=== PATIENT | female | born 1940 | race Caucasian/White ===

== ENCOUNTER → 2016-11-13 | Outpatient (CLI) | payer MEDICARE, BC ==
[2016-11-13 13:10] LABS: Basophils # (A) 0.1 k/uL (0-0.2); Basophils % (A) 0 %; CH 29.7; Eosinophils # (A) 0.4 k/uL (0-0.7); Eosinophils % (A) 3 %; HCT 43.3 % (34.0-46.0); HDW 2.71; HGB 13.9 gm/dL (11.4-16.0); Luc # (Auto) 0.27; Luc % (Auto) 2; Lymphocytes # (A) 4.8 k/uL (1.0-4.8); Lymphocytes % (A) 36 %; MCV 90.6 fL (80.0-100.0); Mean Platelet Volume 7.5; Monocytes # (A) 0.7 k/uL (0-1.0); Monocytes % (A) 5 %; Neutrophils # (A) 7.3 k/uL (1.3-7.7); Neutrophils % (A) 54 %; RBC 4.78 m/uL (3.80-5.40); RDW 15.1 % (11.5-15.5); WBC 13.5 k/uL (3.8-10.6)
[2016-11-13 13:45] LABS: Manual Review Performed
[2016-11-13 16:38] LABS: Erythrocyte Sedimentation Rate 19 mm/hr (0-20)
[2016-11-13 20:50] LABS: Alternaria alternata IgE <0.10 kU/L; Aspergillus fumagatus IgE <0.10 kU/L; Cat Epith & Dander IgE <0.10 kU/L; Cladosporian herbarum IgE <0.10 kU/L; Dermato. farinae IgE <0.10 kU/L; Maple (Box Elder) IgE <0.10 kU/L; Orchard Grs(Cocksfoot) IgE <0.10 kU/L; Ragweed,Common IgE <0.10 kU/L
== END | disposition home or self-care (01) ==
LOC: LABWHC1 12:49
PROVIDERS: ATTEND Internal Medicine
DX: T78.40XA Allergy, unspecified, initial encounter (principal); R05 Cough
CPT/HCPCS: 36415; 82785; 85025; 85652; 86003

== ENCOUNTER → 2017-03-21 | Outpatient (CLI) | payer MEDICARE, BC | END | disposition home or self-care (01) | LOC: RADBDWWP 13:17 | PROVIDERS: ATTEND Internal Medicine | DX: Z53.9 Procedure and treatment not carried out, unspecified reason (principal) ==

== ENCOUNTER 2017-06-28 20:28 | Inpatient (IN) | payer MEDICARE, BC ==
--- NOTE | 2017-06-28 21:49 | ED ---
SOB HPI - General Chief Complaint: Shortness of Breath Stated Complaint: SOB Time Seen by Provider: 06/28/17 21:29 Source: patient Mode of arrival: wheelchair Limitations: no limitations - History of Present Illness Initial Comments: This patient is a 77-year-old woman who presents with complaint of progressively worsening cough, wheeze, and shortness of breath. The patient states that she has history of asthma and usually is maintained on daily steroids in addition to inhaled medications. Patient states that she is scheduled to have a procedure performed for gastroesophageal reflux, and that she was taken off of her daily steroids weeks ago. She states that she feels like her underlying lung disease is getting progressively worse. Today she has taken a number of nebulized treatments and she even took 1 dose of prednisone about 5 PM, but she still feels like her breathing is not back to normal. Patient denies any other symptoms. No fever or chills. Cough is nonproductive. No chest pain. No change in bowel movements or urination area no leg pain or swelling MD Complaint: shortness of breath, cough -: days(s) Consistency: constant Improves With: nothing Worsens With: nothing Known History Of: asthma, other (Reflux) Context: medication noncompliance Associated Symptoms: denies other symptoms, cough Treatments Prior to Arrival: bronchodilator, other (Prednisone) - Related Data Home Oxygen Therapy: No Home Medications Medication Instructions Recorded Confirmed Aspirin 325 mg PO DIRECTED 01/18/16 06/28/17 Biotin 5 mg PO DIRECTED 01/18/16 06/28/17 Bisoprolol Fumarate [Zebeta] 5 mg PO HS 01/18/16 06/28/17 Cholecalciferol [Vitamin D3] 2,000 unit PO DIRECTED 01/18/16 06/28/17 Gabapentin [Neurontin] 300 mg PO HS 01/18/16 06/28/17 LORazepam [Ativan] 0.5 mg PO DAILY PRN 01/18/16 06/28/17 Levothyroxine Sodium [Synthroid] 50 mcg PO DAILY 01/18/16 06/28/17 Montelukast [Singulair] 10 mg PO HS 01/18/16 06/28/17 Multivit-Min/Iron/Folic/Lutein 1 tab PO DIRECTED 01/18/16 06/28/17 [Centrum Silver Women Tablet] Omeprazole 40 mg PO BID 01/18/16 06/28/17 Rosuvastatin Calcium [Crestor] 20 mg PO HS 01/18/16 06/28/17 Albuterol Sulfate [Proair Hfa] 2 puff INHALATION RT-BID 06/28/17 06/28/17 Ascorbic Acid [Vitamin C] 1,000 mg PO DIRECTED 06/28/17 06/28/17 Calcium 1000mg 1,000 mg PO DIRECTED 06/28/17 06/28/17 Chelated Magnesium 500mg 500 mg PO DIRECTED 06/28/17 06/28/17 Fish Oil/Dha/Epa [Fish Oil 1,200 1 cap PO DIRECTED 06/28/17 06/28/17 mg Fish Oil] Folic Acid 0.4 mg PO DIRECTED 06/28/17 06/28/17 Glycopyrrolate/Formoterol Fum 2 puff INHALATION RT-BID 06/28/17 06/28/17 [Bevespi Aerosphere Inhaler] Ranitidine HCl [Zantac] 150 mg PO DAILY 06/28/17 06/28/17 Allergies Allergy/AdvReac Type Severity Reaction Status Date / Time Sulfa (Sulfonamide Allergy Rash/Hives Verified 06/28/17 22:05 Antibiotics) Review of Systems ROS Statement: Those systems with pertinent positive or pertinent negative responses have been documented in the HPI. ROS Other: All systems not noted in ROS Statement are negative. Constitutional: Denies: fever, chills ENT: Denies: congestion Respiratory: Reports: cough, dyspnea, wheezes. Denies: hemoptysis Cardiovascular: Denies: chest pain, palpitations, syncope Gastrointestinal: Denies: abdominal pain, nausea, vomiting Genitourinary: Denies: dysuria, hematuria Musculoskeletal: Denies: back pain Skin: Denies: rash Neurological: Denies: headache, weakness, numbness Past Medical History Past Medical History: Asthma, Cancer, GERD/Reflux, Hyperlipidemia, Hypertension , Thyroid Disorder Additional Past Medical History / Comment(s): BASAL CELL CA BELOW RT EYE-TO BE REMOVED AT A LATER DATE, History of Any Multi-Drug Resistant Organisms: None Reported Past Surgical History: Tonsillectomy Additional Past Surgical History / Comment(s): CTR-BILAT WRISTS. EGD. COLONOSCOPY. BILAT CATARACTS REMOVED Past Anesthesia/Blood Transfusion Reactions: No Reported Reaction Past Psychological History: No Psychological Hx Reported Smoking Status: Former smoker Past Alcohol Use History: Rare Past Drug Use History: None Reported - Past Family History Mother Family Medical History: No Reported History General Exam Limitations: no limitations General appearance: alert, in no apparent distress Head exam: Present: atraumatic, normocephalic Eye exam: Present: normal appearance. Absent: scleral icterus, conjunctival injection ENT exam: Present: normal oropharynx Neck exam: Present: normal inspection Respiratory exam: Present: wheezes. Absent: respiratory distress, rales, rhonchi, stridor, accessory muscle use, decreased breath sounds, prolonged expiratory Cardiovascular Exam: Present: regular rate, normal rhythm, normal heart sounds. Absent: systolic murmur, diastolic murmur, rubs, gallop GI/Abdominal exam: Present: soft. Absent: distended, tenderness, guarding, rebound Extremities exam: Present: normal inspection, normal capillary refill. Absent: pedal edema, calf tenderness Back exam: Present: normal inspection Neurological exam: Present: alert Skin exam: Present: warm, dry, intact, normal color. Absent: rash Course Vital Signs 06/28/17 06/28/17 06/28/17 20:35 22:09 22:24 Temperature 99.0 F Pulse Rate 94 82 84 Respiratory 20 Rate Blood Pressure 139/80 O2 Sat by Pulse 95 Oximetry 06/28/17 23:16 Temperature 97.6 F Pulse Rate 85 Respiratory 18 Rate Blood Pressure 124/85 O2 Sat by Pulse 98 Oximetry Medical Decision Making - Lab Data Result diagrams: 06/28/17 21:30 06/28/17 21:30 Lab Results 06/28/17 06/28/17 06/28/17 Range/Units 21:30 21:30 21:30 WBC 8.5 (3.8-10.6) k/uL RBC 5.07 (3.80-5.40) m/uL Hgb 14.1 (11.4-16.0) gm/dL Hct 43.2 (34.0-46.0) % MCV 85.3 (80.0-100.0) fL MCH 27.8 (25.0-35.0) pg MCHC 32.6 (31.0-37.0) g/dL RDW 13.5 (11.5-15.5) % Plt Count 261 (150-450) k/uL Neutrophils % 80 % Lymphocytes % 13 % Monocytes % 2 % Eosinophils % 3 % Basophils % 1 % Neutrophils # 6.8 (1.3-7.7) k/uL Lymphocytes # 1.1 (1.0-4.8) k/uL Monocytes # 0.2 (0-1.0) k/uL Eosinophils # 0.3 (0-0.7) k/uL Basophils # 0.1 (0-0.2) k/uL D-Dimer 0.70 H (<0.60) mg/L FEU Sodium 142 (137-145) mmol/L Potassium 4.0 (3.5-5.1) mmol/L Chloride 106 (98-107) mmol/L Carbon Dioxide 23 (22-30) mmol/L Anion Gap 13 mmol/L BUN 17 (7-17) mg/dL Creatinine 0.60 (0.52-1.04) mg/dL Est GFR (CKD-EPI)AfAm >90 (>60 ml/min/1.73 sqM) Est GFR (CKD-EPI)NonAf 88 (>60 ml/min/1.73 sqM) Glucose 159 H (74-99) mg/dL Calcium 10.0 (8.4-10.2) mg/dL Magnesium 2.0 (1.6-2.3) mg/dL Total Bilirubin 0.4 (0.2-1.3) mg/dL AST 35 (14-36) U/L ALT 25 (9-52) U/L Alkaline Phosphatase 56 (38-126) U/L Troponin I (0.000-0.034) ng/mL NT-Pro-B Natriuret Pep pg/mL Total Protein 7.2 (6.3-8.2) g/dL Albumin 4.3 (3.5-5.0) g/dL Urine Color Urine Appearance (Clear) Urine pH (5.0-8.0) Ur Specific [place] (1.001-1.035) Urine Protein (Negative) Urine Glucose (UA) (Negative) Urine Ketones (Negative) Urine Blood (Negative) Urine Nitrite (Negative) Urine Bilirubin (Negative) Urine Urobilinogen (<2.0) mg/dL Ur Leukocyte Esterase (Negative) 06/28/17 06/28/17 06/28/17 Range/Units 21:30 21:30 23:00 WBC (3.8-10.6) k/uL RBC (3.80-5.40) m/uL Hgb (11.4-16.0) gm/dL Hct (34.0-46.0) % MCV (80.0-100.0) fL MCH (25.0-35.0) pg MCHC (31.0-37.0) g/dL RDW (11.5-15.5) % Plt Count (150-450) k/uL Neutrophils % % Lymphocytes % % Monocytes % % Eosinophils % % Basophils % % Neutrophils # (1.3-7.7) k/uL Lymphocytes # (1.0-4.8) k/uL Monocytes # (0-1.0) k/uL Eosinophils # (0-0.7) k/uL Basophils # (0-0.2) k/uL D-Dimer (<0.60) mg/L FEU Sodium (137-145) mmol/L Potassium (3.5-5.1) mmol/L Chloride (98-107) mmol/L Carbon Dioxide (22-30) mmol/L Anion Gap mmol/L BUN (7-17) mg/dL Creatinine (0.52-1.04) mg/dL Est GFR (CKD-EPI)AfAm (>60 ml/min/1.73 sqM) Est GFR (CKD-EPI)NonAf (>60 ml/min/1.73 sqM) Glucose (74-99) mg/dL Calcium (8.4-10.2) mg/dL Magnesium (1.6-2.3) mg/dL Total Bilirubin (0.2-1.3) mg/dL AST (14-36) U/L ALT (9-52) U/L Alkaline Phosphatase (38-126) U/L Troponin I 0.094 H* (0.000-0.034) ng/mL NT-Pro-B Natriuret Pep 792 pg/mL Total Protein (6.3-8.2) g/dL Albumin (3.5-5.0) g/dL Urine Color Light Yellow Urine Appearance Clear (Clear) Urine pH 6.5 (5.0-8.0) Ur Specific [place] 1.008 (1.001-1.035) Urine Protein Trace H (Negative) Urine Glucose (UA) Negative (Negative) Urine Ketones Negative (Negative) Urine Blood Negative (Negative) Urine Nitrite Negative (Negative) Urine Bilirubin Negative (Negative) Urine Urobilinogen <2.0 (<2.0) mg/dL Ur Leukocyte Esterase Negative (Negative) - EKG Data -: EKG Interpreted by Me EKG shows normal: sinus rhythm, axis (Normal), intervals ([place] interval is 198 ms , normal. QRS duration 92 ms, normal. QTC 510 ms and this is prolonged.), QRS complexes (Normal) Rate: normal (Approximately 88 bpm) Interpretation: nonspecific ST-T wave changes Disposition Clinical Impression: Asthma, Elevated troponin I level Disposition: ADMITTED IP TO THIS HOSP Condition: Fair Referrals: Glynn Galloway MD [Primary Care Provider] - 1-2 days
[2017-06-28] MEDS ORDERED: ALBUTEROL NEBULIZED 2.5 MG/3 ML INHALATION STA (21:57)
[2017-06-28] MEDS ORDERED: IPRATROPIUM-ALBUTEROL 3 ML NEB INHALATION STA (21:57)
[2017-06-28 22:09] LABS: Basophils # (A) 0.1 k/uL (0-0.2); Basophils % (A) 1 %; Eosinophils # (A) 0.3 k/uL (0-0.7); Eosinophils % (A) 3 %; HCT 43.2 % (34.0-46.0); HGB 14.1 gm/dL (11.4-16.0); Lymphocytes # (A) 1.1 k/uL (1.0-4.8); Lymphocytes % (A) 13 %; MCH 27.8 pg (25.0-35.0); MCHC 32.6 g/dL (31.0-37.0); MCV 85.3 fL (80.0-100.0); Mean Platelet Volume 7.8; Monocytes # (A) 0.2 k/uL (0-1.0); Monocytes % (A) 2 %; Neutrophils # (A) 6.8 k/uL (1.3-7.7); Neutrophils % (A) 80 %; Platelet Count 261 k/uL (150-450); RBC 5.07 m/uL (3.80-5.40); RDW 13.5 % (11.5-15.5); WBC 8.5 k/uL (3.8-10.6)
[2017-06-28 22:19] LABS: ALT 25 U/L (9-52); AST 35 U/L (14-36); Albumin 4.3 g/dL (3.5-5.0); Alkaline Phosphatase 56 U/L (38-126); Anion Gap 13 mmol/L; Blood Urea Nitrogen 17 mg/dL (7-17); Carbon Dioxide 23 mmol/L (22-30); Chloride 106 mmol/L (98-107); Glucose 159 mg/dL (74-99); Sodium 142 mmol/L (137-145); Total Bilirubin 0.4 mg/dL (0.2-1.3); Total Protein 7.2 g/dL (6.3-8.2)
--- NOTE | 2017-06-28 22:25 | XR ---
EXAMINATION TYPE: XR chest 2V DATE OF EXAM: 06/28/2017 COMPARISON: 12/18/2016 HISTORY: Acid reflux. Chest pain TECHNIQUE: Frontal and lateral views of the chest are obtained. FINDINGS: There is no heart failure nor confluent pneumonic infiltrate. Heart size is normal. There are chest leads. Costophrenic angles are clear. Bony thorax is intact. IMPRESSION: No active cardiopulmonary disease. There is improved inspiration compared to old exam.
[2017-06-28] MEDS ORDERED: ACETAMINOPHEN TAB 325 MG TAB PO STA (22:48)
[2017-06-28 23:13] LABS: Appearance,Urine Clear (Clear); Bilirubin,Urine Negative (Negative); Blood,Urine Negative (Negative); Color,Urine Light Yellow; Glucose,Urine (UA) Negative (Negative); Ketones,Urine Negative (Negative); Leukocyte Esterase,Urine Negative (Negative); Nitrite,Urine Negative (Negative); PH, Urine 6.5 (5.0-8.0); Protein,Urine Trace (Negative); Specific Gravity,Urine 1.008 (1.001-1.035); Urobilinogen,Urine <2.0 mg/dL (<2.0)
[2017-06-29] MEDS ORDERED: NITROGLYCERIN SL TABS 0.4 MG TAB SUBLINGUAL PRN (00:15)
[2017-06-29] MEDS ORDERED: HEPARIN SODIUM,PORCINE 5,000 UNIT/ML 1 ML VIAL IV ONE (00:15)
[2017-06-29] MEDS ORDERED: HEPARIN SOD,PORK IN 0.45% NACL 25,000 UNIT in 0.45% NACL 1 500ML.BAG IV SCH (00:15)
[2017-06-29] MEDS ORDERED: LORazepam 0.5 MG TAB PO PRN (00:18)
[2017-06-29] MEDS ORDERED: CHOLECALCIFEROL 1,000 UNIT TAB PO SCH (00:30)
[2017-06-29] MEDS ORDERED: NON-FORMULARY DRUG (Multivit-Min/Iron/Folic/Lutein [Centrum Silver Women Tablet] 1 TAB) PO SCH (00:30)
[2017-06-29] MEDS ORDERED: NON-FORMULARY DRUG (Biotin [Biotin] 5 MG) PO SCH (00:30)
[2017-06-29] MEDS ORDERED: CHELATED MAGNESIUM PO SCH (00:30)
[2017-06-29] MEDS ORDERED: NON-FORMULARY DRUG (Folic Acid [Folic Acid] 0.4 MG) PO SCH (00:30)
[2017-06-29] MEDS ORDERED: CALCIUM CARBONATE 500 MG CHEWABLE PO SCH (00:30)
[2017-06-29] MEDS: SODIUM CHLORIDE 0.9% 1,000 ML IV SCH ×2 (00:35→23:55)
[2017-06-29 01:44] VITALS: BMI 32.2
[2017-06-29 02:44] LABS: Creatine Kinase MB 1.2 ng/mL (0.0-2.4); Troponin I 0.082 ng/mL (0.000-0.034)
[2017-06-29] MEDS: IPRATROPIUM-ALBUTEROL 3 ML NEB INHALATION PRN ×3 (07:45→16:16)
[2017-06-29] MEDS ORDERED: ALBUTEROL NEBULIZED 2.5 MG/3 ML INHALATION SCH (08:00)
[2017-06-29] MEDS ORDERED: NON-FORMULARY DRUG (Glycopyrrolate/Formoterol Fum [Bevespi Aerosphere Inhaler] 2 PUFF) INHALATION SCH (08:00)
[2017-06-29 08:12] LABS: Creatine Kinase MB 1.2 ng/mL (0.0-2.4)
[2017-06-29 08:14] LABS: Troponin I 0.052 ng/mL (0.000-0.034)
[2017-06-29] MEDS: FAMOTIDINE 20 MG TAB PO SCH (08:47)
[2017-06-29] MEDS: LEVOTHYROXINE 50 MCG TAB PO SCH (08:47)
[2017-06-29] MEDS: PANTOPRAZOLE 40 MG TABLET PO SCH ×2 (08:47→17:38)
[2017-06-29] MEDS ORDERED: RX INFO: IV CONTRAST WAS GIVEN 1 EACH MISC MISCELLANE PRN (09:01)
--- NOTE | 2017-06-29 10:20 | CONS ---
CONSULTATION CHIEF COMPLAINT: Elevated troponin. This is a 77-year-old lady with history of gastroesophageal reflux disease with asthma who was brought to hospital with progressively worsening shortness of breath, cough, and wheezing for the last several days. She has had a chronic problem with cough and wheezing and has had extensive workup in the outpatient setting. She has been seen by Cardiology, who felt that she does not have either LV dysfunction or coronary artery disease. Evaluated by Pulmonary, who felt that the patient has gastroesophageal reflux disease and reactive asthma. The patient was to undergo Jesús fundoplication, but was on steroids which were being tapered prior to surgery. So over the last several days, her shortness of breath has been getting progressively worse. Daughter who is at bedside and quite knowledgeable tells me that her O2 sats have been progressively dropping. Due to this, she came to the ER where troponins were done. They came back elevated due to which she is admitted to hospital. She does not have any chest pain. EKG shows minor nonspecific ST-T wave changes. The troponin elevation in her case is probably related to supply demand mismatch related to the respiratory distress. She is wheezing, short of breath and on oxygen at the time of my evaluation. PAST MEDICAL HISTORY: Past medical history is significant for hypothyroidism, asthma and dyslipidemia. MEDICATIONS: Medications at home include Crestor, Zantac, omeprazole, Synthroid, Singulair, Ativan, Neurontin, Zebeta. ALLERGIES: Allergic to SULFA. FAMILY HISTORY: Family history is negative for premature coronary artery disease. SOCIAL HISTORY: Denies current smoking, EtOH abuse or drug abuse. REVIEW OF SYSTEMS: HEENT is unremarkable. CARDIAC: As described above. RESPIRATORY: As described above. GI: Negative. GENITOURINARY: Negative. ALLERGY/IMMUNOLOGY: Negative. SKIN: Negative. MUSCULOSKELETAL: Significant for arthritis. PSYCHOSOCIAL: Negative. ENDOCRINE: Negative. HEMATOLOGIC: Negative. DERM: Negative. CONSTITUTIONAL: Negative. ONCOLOGICAL: Negative. Rest of the system review is not relevant. PHYSICAL EXAM: On exam, comfortable at rest. Afebrile. Vital signs are stable. There is no jugular venous distention. Carotid upstroke is normal. There is no bruit. Chest exam reveals diffuse bilateral wheezing. Heart exam reveals first and second heart sounds. No gallop. Has a systolic murmur at the left lower sternal border. Abdomen is soft. Examination of the extremities did not reveal any edema. Peripheral pulses are palpable. LABS: Labs show that the hemoglobin is 14.1, platelet count is 260. Potassium is 4. Creatinine is 0.6. Tropes are elevated. D-dimer is 0.7. ASSESSMENT: 1. Troponin elevation probably related to the respiratory distress. 2. Acute severe asthmatic exacerbation. PLAN: I am going to obtain a 2D echo on her to evaluate her LV function. Continue the aspirin and statin. I will obtain a CT scan of the chest to rule out pulmonary embolism given the elevated D-dimer. MMODL / IJN: [id number] /
--- NOTE | 2017-06-29 10:34 | P.CONS ---
History of Present Illness - Reason for Consult Consult date: 06/29/17 GERD Requesting physician: Markos Correa - History of Present Illness 77-year-old female patient of Drs. Galloway and Law admitted with acute shortness of breath cough wheezing drop in oxygen saturations. She has a past medical history of GERD, chronic cough for more than 20 years, obstructive sleep apnea, bronchial asthma, vitamin A deficiency, hyperlipidemia, hypertension, generalized anxiety disorder. Patient is scheduled for a partial Jeúss fundoplication with Dr. Jeffery [facility] on 07/06/2017. Patient was advised by her surgeon Dr. Jeffery to stop steroid therapy a few weeks before her scheduled surgery she has been off steroids for about 11 days. She's had multiple EGDs in the past as well as barium swallow study porting features of presbyesophagus and small hiatal hernia no evidence of peptic ulcer disease or Morley's esophagus. Chest x-ray no active cardiopulmonary disease. White count 8.5. Hemoglobin 14.1. D-dimer 0.7. Receiving intravenous heparin. Troponin 0.05-0.09. Cardiology consulted. Review of Systems Constitutional: Denies fever, chills, sweats, weight gain, or loss. HEENT: Negative for migraines, blurred vision or loss, earaches, drainage, tinnitus, oral mucosal lesions, dysphagia, or odynophagia. CARDIAC: Hypertension. Hyperlipidemia. Negative for chest pain, arrhythmias, or palpitation. RESPIRATORY: Asthma. Obstructive sleep apnea. Negative for shortness of breath , hemoptysis, cough, or sputum production. GI: See HPI for pertinent findings. : Negative for hematuria, urgency, frequency, polyuria, or dysuria. GYNc: Denies possibility of . Negative vaginal discharge. MUSCULOSKELETAL: Negative for muscle aches, swelling, arthritis, and arthralgias. NEUROLOGIC: Negative for stroke or TIA. ENDOCRINE: Negative for thyroid problems. SKIN: Basal cell carcinoma. Negative for rash or itching. PSYCHIATRIC: Negative history for depression and anxiety Past Medical History Past Medical History: Asthma, Cancer, GERD/Reflux, Hyperlipidemia, Hypertension , Thyroid Disorder Additional Past Medical History / Comment(s): BASAL CELL CA BELOW RT EYE-TO BE REMOVED AT A LATER DATE, History of Any Multi-Drug Resistant Organisms: None Reported Past Surgical History: Tonsillectomy Additional Past Surgical History / Comment(s): CTR-BILAT WRISTS. EGD. COLONOSCOPY. BILAT CATARACTS REMOVED Past Anesthesia/Blood Transfusion Reactions: No Reported Reaction Smoking Status: Former smoker - Past Family History Mother Family Medical History: Coronary Artery Disease (CAD) Additional Family Medical History / Comment(s): ortho issues Father Family Medical History: Coronary Artery Disease (CAD), CVA/TIA Medications and Allergies Home Medications Medication Instructions Recorded Confirmed Type Aspirin 325 mg PO DIRECTED 01/18/16 06/28/17 History Biotin 5 mg PO DIRECTED 01/18/16 06/28/17 History Bisoprolol Fumarate [Zebeta] 5 mg PO HS 01/18/16 06/28/17 History Cholecalciferol [Vitamin D3] 2,000 unit PO DIRECTED 01/18/16 06/28/17 History Gabapentin [Neurontin] 300 mg PO HS 01/18/16 06/28/17 History LORazepam [Ativan] 0.5 mg PO DAILY PRN 01/18/16 06/28/17 History Levothyroxine Sodium [Synthroid] 50 mcg PO DAILY 01/18/16 06/28/17 History Montelukast [Singulair] 10 mg PO HS 01/18/16 06/28/17 History Multivit-Min/Iron/Folic/Lutein 1 tab PO DIRECTED 01/18/16 06/28/17 History [Centrum Silver Women Tablet] Omeprazole 40 mg PO BID 01/18/16 06/28/17 History Rosuvastatin Calcium [Crestor] 20 mg PO HS 01/18/16 06/28/17 History Albuterol Sulfate [Proair Hfa] 2 puff INHALATION RT-BID 06/28/17 06/28/17 History Ascorbic Acid [Vitamin C] 1,000 mg PO DIRECTED 06/28/17 06/28/17 History Calcium 1000mg 1,000 mg PO DIRECTED 06/28/17 06/28/17 History Chelated Magnesium 500mg 500 mg PO DIRECTED 06/28/17 06/28/17 History Fish Oil/Dha/Epa [Fish Oil 1,200 1 cap PO DIRECTED 06/28/17 06/28/17 History mg Fish Oil] Folic Acid 0.4 mg PO DIRECTED 06/28/17 06/28/17 History Ranitidine HCl [Zantac] 150 mg PO DAILY 06/28/17 06/28/17 History Allergies Allergy/AdvReac Type Severity Reaction Status Date / Time Sulfa (Sulfonamide Allergy Rash/Hives Verified 06/28/17 22:05 Antibiotics) Physical Exam Vitals: Vital Signs Temp Pulse Pulse Resp BP BP Pulse Ox 06/29/17 08:00 97.7 F 78 144/67 96 06/29/17 07:55 79 06/29/17 07:45 79 18 06/29/17 04:00 97.1 F L 77 16 139/68 97 06/29/17 01:15 89 16 120/58 92 L 06/29/17 00:24 86 18 134/67 96 06/28/17 23:16 97.6 F 85 18 124/85 98 06/28/17 22:24 84 06/28/17 22:09 82 06/28/17 20:35 99.0 F 94 20 139/80 95 Intake and Output 06/28/17 06/29/17 06/29/17 22:59 06:59 14:59 Intake Total 160 Balance 160 Intake: IV 160 Heparin Sod,Pork in 0.45% 160 NaCl 25,000 unit In 0.45 % NaCl 1 500ml.bag @ 12 UNITS/KG/HR 19.81 mls/hr IV .Q24H [facility] Rx#: [id number] Other: # Voids 2 Weight 82.554 kg 83.4 kg General appearance: The patient is alert, oriented, in no acute distress. Short of breath with speech. HET: Head is normocephalic and atraumatic. Pupils are equal and reactive. Oropharynx is clear without lesions. Neck: Supple without lymphadenopathy. Trachea midline. Heart: S1 S2. Regular rate and rhythm. Lungs: Extensive wheezing and all air anne. Abdomen: Soft, nontender, nondistended with bowel sounds. No peritoneal signs. No palpable organomegaly or masses. Extremities: Normal skin color and turgor. No cyanosis, rash, ulceration, clubbing, or edema. Radial and pedal pulses are 2/4 bilaterally. Neurological: No focal deficits. Strength and sensation are grossly intact. Results CBC & Chem 7: 06/28/17 21:30 06/28/17 21:30 Labs: Abnormal Lab Results - Last 24 Hours (Table) 06/28/17 06/28/17 06/28/17 Range/Units 21:30 21:30 21:30 APTT (22.0-30.0) sec D-Dimer 0.70 H (<0.60) mg/L FEU Glucose 159 H (74-99) mg/dL Troponin I 0.094 H* (0.000-0.034) ng/mL Urine Protein (Negative) 06/28/17 06/29/17 06/29/17 Range/Units 23:00 01:48 06:57 APTT (22.0-30.0) sec D-Dimer (<0.60) mg/L FEU Glucose (74-99) mg/dL Troponin I 0.082 H* 0.052 H* (0.000-0.034) ng/mL Urine Protein Trace H (Negative) 06/29/17 Range/Units 06:57 APTT 101.5 H* (22.0-30.0) sec D-Dimer (<0.60) mg/L FEU Glucose (74-99) mg/dL Troponin I (0.000-0.034) ng/mL Urine Protein (Negative) Assessment and Plan (1) GERD (gastroesophageal reflux disease) Narrative/Plan: 77-year-old female admitted with shortness of breath wheezing coughing elevated troponin with history of asthma and GERD scheduled for partial Jesús fundoplication 07/06/[address] Jeffery at outside facility not on steroid therapy prior to admission. Current Visit: Yes Status: Acute Code(s): K21.9 - GASTRO-ESOPHAGEAL REFLUX DISEASE WITHOUT ESOPHAGITIS SNOMED Code(s): 358773380 (2) Shortness of breath Current Visit: Yes Status: Acute Code(s): R06.02 - SHORTNESS OF BREATH SNOMED Code(s): 631100806 (3) Chronic cough Current Visit: Yes Status: Acute Code(s): R05 - COUGH SNOMED Code(s): 43567360 (4) Asthma Current Visit: Yes Status: Acute Code(s): J45.909 - UNSPECIFIED ASTHMA, UNCOMPLICATED SNOMED Code(s): 238053701 (5) Elevated troponin I level Current Visit: Yes Status: Acute Code(s): R74.8 - ABNORMAL LEVELS OF OTHER SERUM ENZYMES SNOMED Code(s): 128068345 Plan: 1. Protonix 40 mg IV twice daily. Cardiology consultation. Antireflux measures. Inpatient EGD not planned at this time. Family was inquiring about gallbladder disease contributing to her GERD type symptoms requesting HIDA scan. Family and patient was advised to discuss with attending and to notify her surgeon/Dr. Jeffery this admission for further direction/recommendations. Will defer to medicine/surgeon for gallbladder evaluation. Thank you for this kind referral and the opportunity to participate in the care of your patient. This consultation was discussed with Dr. Vargas. The impression and plan of care have been directed as dictated.
[2017-06-29] MEDS: LORazepam 0.5 MG TAB PO PRN ×2 (12:00→17:01)
[2017-06-29] MEDS: methylPREDNISolone SOD SUCCI 125 MG/2 ML VIAL IV SCH ×3 (12:23→23:54)
[2017-06-29] MEDS: ACETAMINOPHEN TAB 325 MG TAB PO PRN ×2 (13:27→18:45)
--- NOTE | 2017-06-29 13:43 | P.CNPUL ---
History of Present Illness Consult date: 06/29/17 Reason for consult: dyspnea, cough, asthma Chief complaint: Shortness of breath History of present illness: Consult dated 06/29/2017 This is a 77-year-old female who presents with complaints of increasing shortness of breath worsening cough and chest tightness. The patient does have a history of mild asthma but her asthma is usually aggravated exacerbated by her acid reflux disease. She apparently has quite severe acid reflux disease. She had a 24-hour pH probe and her acid score or Pedro-DeMeester score was 57. Normal is less than 21. She apparently saw a surgeon down by [place] was going to have a laparoscopic Jesús fundoplication but because she been on steroids for so long, the surgeon did not want to do the surgery until she was off the steroids. Anyway she was off for about 11 days and she unfortunately had to go back on steroids because her asthma is acting up. It appears that her asthma is primarily aggravated by her acid reflux disease, not an uncommon scenario. Currently, for her acid reflux disease, she has dietary indiscretion counseling as well as Zantac and omeprazole. She is on maximal dose omeprazole. Despite that, she still having significant issues. Her asthma is also being well treated. She is on number medications for that. She has seen my partner before. She did have a pulmonary function test. She does have a history of sleep apnea syndrome. For that she uses CPAP. In addition to all the above, she does have a history of hyperlipidemia hypertension hypothyroidism and basal cell cancer of the skin. Review of Systems A 12 point review of system is positive for shortness breath chest tightness wheezing cough chest congestion and shortness of breath. Past Medical History Past Medical History: Asthma, Cancer, GERD/Reflux, Hyperlipidemia, Hypertension , Thyroid Disorder Additional Past Medical History / Comment(s): BASAL CELL CA BELOW RT EYE-TO BE REMOVED AT A LATER DATE, History of Any Multi-Drug Resistant Organisms: None Reported Past Surgical History: Tonsillectomy Additional Past Surgical History / Comment(s): CTR-BILAT WRISTS. EGD. COLONOSCOPY. BILAT CATARACTS REMOVED Past Anesthesia/Blood Transfusion Reactions: No Reported Reaction Smoking Status: Former smoker - Past Family History Mother Family Medical History: Coronary Artery Disease (CAD) Additional Family Medical History / Comment(s): ortho issues Father Family Medical History: Coronary Artery Disease (CAD), CVA/TIA Medications and Allergies Home Medications Medication Instructions Recorded Confirmed Type Aspirin 325 mg PO DIRECTED 01/18/16 06/28/17 History Biotin 5 mg PO DIRECTED 01/18/16 06/28/17 History Bisoprolol Fumarate [Zebeta] 5 mg PO HS 01/18/16 06/28/17 History Cholecalciferol [Vitamin D3] 2,000 unit PO DIRECTED 01/18/16 06/28/17 History Gabapentin [Neurontin] 300 mg PO HS 01/18/16 06/28/17 History LORazepam [Ativan] 0.5 mg PO DAILY PRN 01/18/16 06/28/17 History Levothyroxine Sodium [Synthroid] 50 mcg PO DAILY 01/18/16 06/28/17 History Montelukast [Singulair] 10 mg PO HS 01/18/16 06/28/17 History Multivit-Min/Iron/Folic/Lutein 1 tab PO DIRECTED 01/18/16 06/28/17 History [Centrum Silver Women Tablet] Omeprazole 40 mg PO BID 01/18/16 06/28/17 History Rosuvastatin Calcium [Crestor] 20 mg PO HS 01/18/16 06/28/17 History Albuterol Sulfate [Proair Hfa] 2 puff INHALATION RT-BID 06/28/17 06/28/17 History Ascorbic Acid [Vitamin C] 1,000 mg PO DIRECTED 06/28/17 06/28/17 History Calcium 1000mg 1,000 mg PO DIRECTED 06/28/17 06/28/17 History Chelated Magnesium 500mg 500 mg PO DIRECTED 06/28/17 06/28/17 History Fish Oil/Dha/Epa [Fish Oil 1,200 1 cap PO DIRECTED 06/28/17 06/28/17 History mg Fish Oil] Folic Acid 0.4 mg PO DIRECTED 06/28/17 06/28/17 History Ranitidine HCl [Zantac] 150 mg PO DAILY 06/28/17 06/28/17 History Allergies Allergy/AdvReac Type Severity Reaction Status Date / Time Sulfa (Sulfonamide Allergy Rash/Hives Verified 06/28/17 22:05 Antibiotics) Physical Exam Osteopathic Statement: *. No significant issues noted on an osteopathic structural exam other than those noted in the History and Physical/Consult. Vitals: Vital Signs Temp Pulse Pulse Resp BP BP Pulse Ox 06/29/17 12:00 102 H 153/69 90 L 06/29/17 11:35 100 18 06/29/17 11:25 115 H 06/29/17 08:00 97.7 F 78 144/67 96 06/29/17 07:55 79 06/29/17 07:45 79 18 06/29/17 04:00 97.1 F L 77 16 139/68 97 06/29/17 01:15 89 16 120/58 92 L 06/29/17 00:24 86 18 134/67 96 06/28/17 23:16 97.6 F 85 18 124/85 98 06/28/17 22:24 84 06/28/17 22:09 82 06/28/17 20:35 99.0 F 94 20 139/80 95 Intake and Output 06/28/17 06/29/17 06/29/17 22:59 06:59 14:59 Intake Total 160 Balance 160 Intake: IV 160 Heparin Sod,Pork in 0.45% 160 NaCl 25,000 unit In 0.45 % NaCl 1 500ml.bag @ 12 UNITS/KG/HR 19.81 mls/hr IV .Q24H [facility] Rx#: [id number] Other: # Voids 2 Weight 82.554 kg 83.4 kg No acute distress, oriented 3. Nasal mask in place for her CPAP machine HEENT examination is grossly unremarkable. Mucous membranes are moist. No oral lesions. Neck supple. Full range of motion. No adenopathy thyromegaly or neck vein distention. Cardiovascular examination reveals regular rhythm rate. S1-S2 normal. No S3 or S4. No discernible murmur noted. Lungs reveal coarse inspiratory and expiratory wheezes and rhonchi. Breath sounds are diminished. There is prolongation on forced maneuver. Abdomen soft bowel sounds are heard. No masses or tenderness. Extremities are intact. No cyanosis clubbing or edema. Skin is without rash or lesion. Neurologic examination is brief but nonfocal. Results - Laboratory Findings CBC and BMP: 06/28/17 21:30 06/28/17 21:30 PT/INR, D-dimer D-Dimer 0.70 mg/L FEU (<0.60) H 06/28/17 21:30 Abnormal lab findings: Abnormal Labs 06/28/17 06/28/17 06/28/17 21:30 21:30 21:30 APTT D-Dimer 0.70 H Glucose 159 H Troponin I 0.094 H* Urine Protein 06/28/17 06/29/17 06/29/17 23:00 01:48 06:57 APTT D-Dimer Glucose Troponin I 0.082 H* 0.052 H* Urine Protein Trace H 06/29/17 06:57 APTT 101.5 H* D-Dimer Glucose Troponin I Urine Protein - Diagnostic Findings Chest x-ray: image reviewed (Labs x-rays and medications are reviewed. Chest x- ray is normal.) Assessment and Plan Assessment: Assessment Severe acid reflux disease in a patient with a Pedro-DeMeester score a 57 Anticipated laparoscopic Jesús fundoplication, delayed because of the patient' s ongoing active asthma. Asthma exacerbation, triggered by the patient's underlying acid reflux disease History of skin cancer History of hyperlipidemia History of hypertension History of hypothyroidism Plan: Plan dated 06/29/2017 Medications are reviewed. Chest x-ray is normal. We'll make sure she is on appropriate medications for her asthma. Additional recommendations and suggestions are forthcoming. Prognosis is guarded. We'll continue to follow. She'll make an appointment to follow with my partner in the near future. Time with Patient: Greater than 30
--- NOTE | 2017-06-29 16:08 | HP ---
HISTORY AND PHYSICAL DATE OF ADMISSION: 06/28/2017. ATTENDING PHYSICIAN: Dr. Galloway This is a 77-year-old home white female who is being admitted by me as I am covering Dr. Galloway, her primary care physician during this weekend. CHIEF COMPLAINT: Severe shortness of breath, difficulty in breathing, wheezing, and exacerbated of asthma and COPD. This is a 77-year-old white female who was brought to the emergency room because her asthma and COPD was progressively getting worse and she has been coughing and has wheezing and wound and because it was getting worse she was brought to the ER. She was evaluated in the emergency room and her chest x-ray did not show any acute process. EKG showed sinus rhythm and there is no acute ischemic changes, has some prolonged QT interval. Her CBC showed a WBC count of 8.5, hemoglobin 14.1, platelet count 261,000. Sodium 142, potassium 4, BUN 17, creatinine 0.60, glucose 159. CK and CK-MB within normal limits. There is slightly elevation of troponin which was 0.094. D-dimer also slightly elevated, which was 0.70 and BNP is 792. The patient was admitted to the hospital for further evaluation and treatment. PAST MEDICAL HISTORY: Reveals that she has chronic obstructive pulmonary disease and she has been seeing Dr. Foy. The patient also has a longstanding history of gastroesophageal reflux disease and she recently saw a group social worker and he was planning to do some surgical procedure to correct the reflux disease. CURRENT MEDICATIONS: Include aspirin 325 mg p.o. daily, Biotin 5 mg p.o. daily and Neurontin 300 mg p.o. at bedtime, Ativan 0.5 mg p.o. daily p.r.n., Synthroid 50 mcg p.o. daily, Singulair 10 mg daily at bedtime. She is also on several multiple vitamins. Omeprazole 20 mg p.o. daily. Albuterol inhaler 2 puffs q.6 hours p.r.n., Zantac 150 mg p.o. daily. She is ALLERGIC TO SULFA. FAMILY HISTORY: Positive for lung disease and heart problems. She does not smoke and she does not drink alcohol. REVIEW OF SYSTEMS: Patient denies any headache. Appetite has been poor lately. She has no chest pain, but she is extremely short of breath and has a cough. She has no abdominal pain. He has no polyuria or dysuria. She has no neurologic symptoms. PHYSICAL EXAMINATION: Reveals a 77-year-old white female, well nourished and well developed. She is alert and oriented. She is extremely short of breath and using nasal oxygen constantly and there is no jaundice. There is no generalized lymphadenopathy. There are no petechia or bruises. Her temperature 97.8, blood pressure 124/85, pulse ox 98% on with oxygen. Examination of the ENT negative. NECK: Supple. There is no jugular venous distention. There is no goiter and there is no carotid bruit. Heart is in sinus rhythm. Lungs reveal diminished breath sounds over both bases with scattered rhonchi and bilateral expiratory wheeze. ABDOMEN: Soft and nontender. There is no mass palpable. Examination of the lower extremities reveal no pitting edema. Neurologic examination does not reveal any localizing sign. IMPRESSION: 1. Chronic obstructive pulmonary disease with acute exacerbation. 2. Acute bronchitis. 3. Acute on chronic asthma. 4. Hypertensive cardiovascular disease. 5. Hypothyroidism. 6. Gastroesophageal reflux disease. 7. Anxiety disorder. PLAN: Patient will be admitted to the hospital. We will get serial EKGs and cardiac enzymes and the heart will be monitored with telemetry. We will get cardiology consultation and also consult Dr. Foy her accounts receivable manager. As she has slightly elevated D-dimer, we will also get a CT angio. We will also place her back on her previous home medications. The prognosis is guarded. The diagnosis, prognosis and therapeutic plans were discussed in detail with the patient and also with her daughter. MMODL / IJN: [id number] /
[2017-06-29] MEDS: IPRATROPIUM-ALBUTEROL 3 ML NEB INHALATION SCH ×2 (16:18→21:00)
[2017-06-29 16:51] LABS: Glucose,Whole Blood 166 mg/dL (75-99)
[2017-06-29] MEDS: GABAPENTIN 300 MG CAP PO SCH (20:39)
[2017-06-29] MEDS: ATORVASTATIN 40 MG TAB PO SCH (20:39)
[2017-06-29] MEDS: BISOPROLOL 5 MG TAB PO SCH (20:39)
[2017-06-29] MEDS: MONTELUKAST 10 MG TAB PO SCH (20:39)
[2017-06-29] MEDS: HEPARIN SODIUM,PORCINE 5,000 UNIT/ML 1 ML VIAL SQ SCH (20:41)
[2017-06-29] MEDS: FORMOTEROL FUMARATE 20 MCG/2 ML NEBU INHALATION SCH (20:59)
[2017-06-29] MEDS: BUDESONIDE 1 MG/2 ML NEBU INHALATION SCH (20:59)
[2017-06-29] MEDS ORDERED: LORazepam 0.5 MG TAB PO ONE (21:02)
[2017-06-29 21:15] LABS: Glucose,Whole Blood 205 mg/dL (75-99)
--- NOTE | 2017-06-29 22:12 | CT ---
EXAMINATION TYPE: CT angio chest with contrast and with 3-D reconstruction renderings. DATE OF EXAM: 06/29/2017 9:57 PM COMPARISON: 1020 10/14/2019 HISTORY: Elevated d-dimer CT DLP: 375 mGycm. Automated exposure control for dose reduction was used. CONTRAST: CTA scan of the thorax is performed with IV Contrast, patient injected with 100ml mL of Omn ipaque 350, pulmonary embolism protocol. 3-D reconstructions.. FINDINGS: LUNGS: The lungs are grossly clear, there is no concerning parenchymal mass or nodule identified. T here is no pleural effusion or pneumothorax seen. The tracheobronchial tree is patent. MEDIASTINUM: There is satisfactory enhancement of the pulmonary artery and its branches, there is no CT evidence for pulmonary embolism. There are no greater than 1 cm hilar or mediastinal lymph nodes. Prominent coronary calcifications are noted. No megaly. No pericardial effusion. OTHER: No additional significant abnormality is seen. IMPRESSION: 1. NEGATIVE FOR PULMONARY EMBOLISM OR OTHER ACUTE PROCESS. 2. PROMINENT CORONARY ARTERIAL CALCIFICATIONS.
[2017-06-30 03:33] LABS: Cholesterol 157 mg/dL (<200); HDL Cholesterol 69 mg/dL (40-60); LDL Cholesterol,Calculated 76 mg/dL (0-99); Triglycerides 60 mg/dL (<150)
[2017-06-30 06:30] LABS: Glucose,Whole Blood 148 mg/dL (75-99)
[2017-06-30] MEDS: LORazepam 0.5 MG TAB PO PRN ×4 (06:55→21:15)
[2017-06-30] MEDS: methylPREDNISolone SOD SUCCI 125 MG/2 ML VIAL IV SCH ×3 (06:56→21:04)
[2017-06-30] MEDS: INSULIN ASPART 100 UNIT/ML 1 ML 10 ML VIAL SQ SCH ×4 (06:56→21:15)
[2017-06-30] MEDS: LEVOTHYROXINE 50 MCG TAB PO SCH (06:56)
[2017-06-30] MEDS: PANTOPRAZOLE 40 MG TABLET PO SCH ×2 (06:57→18:09)
[2017-06-30] MEDS: BUDESONIDE 1 MG/2 ML NEBU INHALATION SCH ×2 (07:11→20:12)
[2017-06-30] MEDS: IPRATROPIUM-ALBUTEROL 3 ML NEB INHALATION SCH ×3 (07:11→20:15)
[2017-06-30] MEDS: FORMOTEROL FUMARATE 20 MCG/2 ML NEBU INHALATION SCH ×2 (07:11→20:12)
--- NOTE | 2017-06-30 07:52 | ECHOF ---
Referral Reason:dyspnea, elevated troponin MEASUREMENTS -------- HEIGHT: 160.0 cm WEIGHT: 82.6 kg BP: 139/68 RVIDd: 2.4 cm (< 3.3) IVSd: 1.1 cm (0.6 - 1.1) LVIDd: 4.0 cm (3.9 - 5.3) LVPWd: 1.1 cm (0.6 - 1.1) IVSs: 1.3 cm LVIDs: 3.6 cm LVPWs: 1.3 cm LAESV Index (A-L): 15.27 ml/m Ao Diam: 3.1 cm (2.0 - 3.7) AV Cusp: 1.6 cm (1.5 - 2.6) LA Diam: 2.5 cm (2.7 - 3.8) MV E El: 0.88 m/s MV DecT: 319 ms MV A El: 0.80 m/s MV E/A Ratio: 1.10 AR PHT: 329 ms RAP: 5.00 mmHg RVSP: 10.01 mmHg FINDINGS -------- Sinus rhythm. This was a technically adequate study. The left ventricular size is normal. There is borderline concentric left ventricular hypertrophy. Overall left ventricular systolic function is mildly impaired with, an EF between 45 - 50 %. Basal inferoseptal LV wall motion is hypokinetic. Basal anteroseptal LV wall motion is hypokinetic. Mid inferoseptal LV wall motion is hypokinetic. Mid anteroseptal LV wall motion is hypokinetic. The right ventricle is normal in size and function. Normal LA size by volume 22+/-6 ml/m2. The right atrium is normal in size. Aortic valve is trileaflet and is mildly thickened. There is [id number] aortic regurgitation. The aortic pressure half-time by doppler is 329ms. There is no evidence of aortic stenosis. The mitral valve leaflets are mildly thickened. There is trace to mild mitral regurgitation. Trace tricuspid regurgitation present. Right ventricular systolic pressure is normal at < 35 mmHg. There is no evidence of pulmonary hypertension. The pulmonic valve was not well visualized. The aortic root size is normal. Normal inferior vena cava with normal inspiratory collapse consistent with estimated right atrial pre ssure of 5 mmHg. The pericardium is normal. There is no pericardial effusion. CONCLUSIONS -------- 1. Sinus rhythm. 2. This was a technically adequate study. 3. The left ventricular size is normal. 4. There is borderline concentric left ventricular hypertrophy. 5. Overall left ventricular systolic function is mildly impaired with, an EF between 45 - 50 %. 6. Basal inferoseptal LV wall motion is hypokinetic. 7. Basal anteroseptal LV wall motion is hypokinetic. 8. Mid inferoseptal LV wall motion is hypokinetic. 9. Mid anteroseptal LV wall motion is hypokinetic. 10. Normal LA size by volume 22+/-6 ml/m2. 11. Aortic valve is trileaflet and is mildly thickened. 12. There is dfus-qi-[id number] aortic regurgitation. 13. The aortic pressure half-time by doppler is 329ms. 14. The mitral valve leaflets are mildly thickened. 15. There is trace to mild mitral regurgitation. 16. Trace tricuspid regurgitation present. 17. Right ventricular systolic pressure is normal at < 35 mmHg. 18. There is no evidence of pulmonary hypertension. 19. The pulmonic valve was not well visualized. 20. The aortic root size is normal. 21. There is no pericardial effusion. PSYCHOLOGISTS: Otf Rhodes RDCS
[2017-06-30] MEDS: HEPARIN SODIUM,PORCINE 5,000 UNIT/ML 1 ML VIAL SQ SCH ×2 (09:22→20:55)
[2017-06-30] MEDS: ASPIRIN 325 MG TAB PO SCH (09:22)
[2017-06-30] MEDS: FAMOTIDINE 20 MG TAB PO SCH (09:22)
[2017-06-30 11:20] VITALS: RESP 18
[2017-06-30 12:12] LABS: Glucose,Whole Blood 149 mg/dL (75-99)
--- NOTE | 2017-06-30 13:38 | P.PN ---
Subjective Progress Note Date: 06/30/17 Principal diagnosis: Gastroesophageal reflux disease, mild asthma Progress note dated 06/30/2017 This is a 77-year-old female that we saw yesterday in consultation. She has a history of severe acid reflux disease as manifested by a 24-hour pH probe the review of a Pedro-DeMeester score of 57, less than 21 being normal. She apparently is going to have a laparoscopic Jesús fundoplication [place]. Because her asthma is active and because she's been on steroids quite frequently, the surgery has been delayed. Her asthma seems be triggered by her acid reflux disease. In addition, she has a history of skin cancer hyperlipidemia hypertension and hypothyroidism. Doing relatively well today. She's on appropriate medications. She was placed on DuoNeb steroids and both Pulmicort and a long-acting beta agonist solution. Again she's feeling better from the asthma standpoint. Also, today I reviewed the chart she cannot eat which tend to trigger acid reflux disease. We will make sure that she gets an acid reflux diarrhea. She is currently on appropriate medications for her gastroesophageal reflux disease and is seen my partner before in the office. Objective - Vital Signs Vital signs: Vital Signs Temp 98.2 F 06/30/17 11:18 Pulse 86 06/30/17 13:28 Resp 18 06/30/17 11:18 BP 111/50 06/30/17 11:18 Pulse Ox 91 L 06/30/17 11:18 Intake & Output 06/29/17 06/30/17 06/30/17 18:59 06:59 18:59 Intake Total 40 20 Balance 40 20 Intake: IV 10 Invasive Line 1 10 Intake, IV Titration 40 10 Amount Sodium Chloride 0.9% 1, 40 10 000 ml @ 20 mls/hr IV . Q24H [facility] Rx#:[id number] Other: Voiding Method Toilet # Voids 3 - Exam No acute distress, oriented 3. Not on any supplemental oxygen. HEENT examination is grossly unremarkable. Mucous membranes are moist. No oral lesions. Neck supple. Full range of motion. No adenopathy thyromegaly or neck vein distention. Cardiovascular examination reveals regular rhythm rate. S1-S2 normal. No S3 or S4. No discernible murmur noted. Lungs reveal mostly clear breath sounds. Her sounds are equal bilaterally. A few scattered rhonchi are noted. Abdomen soft bowel sounds are heard. No masses or tenderness. Extremities are intact. No cyanosis clubbing or edema. Skin is without rash or lesion. Neurologic examination is brief but nonfocal. - Labs CBC & Chem 7: 06/28/17 21:30 06/28/17 21:30 Labs: Abnormal Lab Results - Last 24 Hours (Table) 06/29/17 06/29/17 06/29/17 Range/Units 06:57 16:45 21:12 POC Glucose (mg/dL) 166 H 205 H (75-99) mg/dL HDL Cholesterol 69 H (40-60) mg/dL 06/30/17 06/30/17 Range/Units 06:13 11:53 POC Glucose (mg/dL) 148 H 149 H (75-99) mg/dL HDL Cholesterol (40-60) mg/dL Assessment and Plan Assessment: Assessment Severe acid reflux disease in a patient with a Pedro-DeMeester score a 57 Anticipated laparoscopic Jesús fundoplication, delayed because of the patient' s ongoing active asthma and use of corticosteroids. Asthma exacerbation, triggered by the patient's underlying acid reflux disease History of skin cancer History of hyperlipidemia History of hypertension History of hypothyroidism Plan: Plan dated 06/29/2017 Medications are reviewed. Chest x-ray is normal. We'll make sure she is on appropriate medications for her asthma. Additional recommendations and suggestions are forthcoming. Prognosis is guarded. We'll continue to follow. She'll make an appointment to follow with my partner in the near future. Plan dated 06/30/2017 The patient's medications. For her acid reflux disease and for her asthma have been reviewed. They are very appropriate. She's feeling much better today than compared to yesterday. She asked me to contact a physician was planning to do the surgery on her. I'll do that on Sunday. No additional recommendations are made. We'll continue to follow. Prognosis is guarded. Again I review the medications with her and also the foods that she cannot eat which includes chocolate, peppermint, tomatoes, citrus fruits, caffeine, etc. Time with Patient: Less than 30
--- NOTE | 2017-06-30 13:58 | P.PN ---
Subjective Progress Note Date: 06/30/17 This is a pleasant 77-year-old female patient with a history of gastroesophageal reflux disease, asthma and recent cardiac workup for preoperative evaluation for possible Jose De Jesus fundoplication. She follows with Dr. Dorantes. Was admitted to the hospital with progressive worsening shortness of breath, cough and wheezing over the last several days. We were asked to see the patient in Consultation due to an elevated troponin which is felt to be related to supply demand mismatch due to hypoxia home. When she was first admitted she did have significant wheezing and shortness of breath. Today she continues to have oxygen saturation in the low 90s on room air. She is breathing somewhat better however her cough has worsened. Lung sounds have significantly improved since yesterday. We have obtained and reviewed records from our office including a recent stress test that showed no evidence for ischemia. Objective - Vital Signs Vital signs: Vital Signs Temp 98.2 F 06/30/17 11:18 Pulse 84 06/30/17 13:40 Resp 18 06/30/17 11:18 BP 111/50 06/30/17 11:18 Pulse Ox 91 L 06/30/17 11:18 Intake & Output 06/29/17 06/30/17 06/30/17 18:59 06:59 18:59 Intake Total 40 20 Balance 40 20 Intake: IV 10 Invasive Line 1 10 Intake, IV Titration 40 10 Amount Sodium Chloride 0.9% 1, 40 10 000 ml @ 20 mls/hr IV . Q24H [facility] Rx#:[id number] Other: Voiding Method Toilet # Voids 3 - Exam PHYSICAL EXAMINATION: HEENT: Head is atraumatic, normocephalic. Pupils equal, round. Neck is supple. There is no elevated jugular venous pressure. HEART EXAMINATION: Heart sounds regular, S1 and S2 with a systolic murmur. CHEST EXAMINATION: Lungs reveal diminished air entry bilaterally. No chest wall tenderness is noted on palpation or with deep breathing. ABDOMEN: Soft, nontender. Bowel sounds are heard. No organomegaly noted. EXTREMITIES: 2+ peripheral pulses with no evidence of peripheral edema and no calf tenderness noted. NEUROLOGIC patient is awake, alert and oriented x3. . - Labs CBC & Chem 7: 06/28/17 21:30 06/28/17 21:30 Labs: Abnormal Lab Results - Last 24 Hours (Table) 0306/29/17 06/29/17 Range/Units 06:57 16:45 21:12 POC Glucose (mg/dL) 166 H 205 H (75-99) mg/dL HDL Cholesterol 69 H (40-60) mg/dL 06/30/17 06/30/17 Range/Units 06:13 11:53 POC Glucose (mg/dL) 148 H 149 H (75-99) mg/dL HDL Cholesterol (40-60) mg/dL Assessment and Plan Assessment: #1 troponin elevation, likely related to hypoxia causing oxygen supply and demand mismatch #2 acute asthma exacerbation #3 GERD Plan: From cardiology perspective, we will follow the patient on an as-needed basis at this time. No further workup is warranted currently. Patient will follow- up with Dr. Dorantes in the office. She will proceed with surgery once cleared by pulmonary. The above dictated assessment and findings were discussed with signing physician. The impression and plan of care have been directed as dictated. Elissa Hollingsworth, Nurse Practitioner, acting as scribe for signing physician.
[2017-06-30] MEDS: ACETAMINOPHEN TAB 325 MG TAB PO PRN (14:32)
[2017-06-30 17:20] LABS: Glucose,Whole Blood 142 mg/dL (75-99)
--- NOTE | 2017-06-30 21:00 | PN ---
PROGRESS NOTE DATE OF SERVICE: 06/30/2017 This 77-year-old white female was admitted with acute exacerbation of COPD and asthma and also acute bronchitis and also she was found to have a congestive heart failure. The patient was seen by [facility] in consultation and also by Dr. Lin in consultation and Dr. Lin is following the patient. The patient was getting IV Solu- Medrol and updraft treatment and patient overall her respiratory status is improving. The patient also has a history of chronic gastroesophageal reflux disease and patient has seen a drawing tender and he is planning to do a surgical procedure to correct his the reflux disease. The patient also was seen by Dr. Vargas in consultation and to Dr. Vargas is not planning to do any upper endoscopy, as she is already seeing another outside drawing tender. The patient has started feeling better and overall prognosis is guarded. She is currently receiving Protonix IV for her reflux disease. She could be discharged home when it is okay with Dr. Lin. MMODL / CHELSEAN: [id number] /
[2017-06-30] MEDS ORDERED: ASPIRIN-ACET-CAFF 250-250-65MG 1 EACH TAB PO PRN (21:02)
[2017-06-30] MEDS: MONTELUKAST 10 MG TAB PO SCH (21:08)
[2017-06-30] MEDS: ATORVASTATIN 40 MG TAB PO SCH (21:08)
[2017-06-30] MEDS: BISOPROLOL 5 MG TAB PO SCH (21:08)
[2017-06-30] MEDS: GABAPENTIN 300 MG CAP PO SCH (21:08)
[2017-06-30 21:21] LABS: Glucose,Whole Blood 160 mg/dL (75-99)
[2017-07-01] MEDS: methylPREDNISolone SOD SUCCI 125 MG/2 ML VIAL IV SCH ×2 (01:09→06:06)
[2017-07-01] MEDS: LORazepam 0.5 MG TAB PO PRN (02:15)
[2017-07-01 06:00] LABS: Glucose,Whole Blood 133 mg/dL (75-99)
[2017-07-01] MEDS: SODIUM CHLORIDE 0.9% 1,000 ML IV SCH (06:00)
[2017-07-01] MEDS: LEVOTHYROXINE 50 MCG TAB PO SCH (06:06)
[2017-07-01] MEDS: PANTOPRAZOLE 40 MG TABLET PO SCH (06:06)
[2017-07-01] MEDS: INSULIN ASPART 100 UNIT/ML 1 ML 10 ML VIAL SQ SCH (06:49)
[2017-07-01 07:58] LABS: Basophils % (A) 0 %; Eosinophils % (A) 0 %; HCT 40.1 % (34.0-46.0); HGB 13.9 gm/dL (11.4-16.0); Lymphocytes # (A) 2.4 k/uL (1.0-4.8); Lymphocytes % (A) 11 %; MCH 29.4 pg (25.0-35.0); MCHC 34.6 g/dL (31.0-37.0); Mean Platelet Volume 7.1; Monocytes # (A) 0.8 k/uL (0-1.0); Monocytes % (A) 4 %; Neutrophils # (A) 17.4 k/uL (1.3-7.7); Neutrophils % (A) 83 %; Platelet Count 281 k/uL (150-450); RBC 4.71 m/uL (3.80-5.40); RDW 13.7 % (11.5-15.5); WBC 20.8 k/uL (3.8-10.6)
[2017-07-01 08:12] LABS: Anion Gap 12 mmol/L; Blood Urea Nitrogen 32 mg/dL (7-17); Calcium 10.5 mg/dL (8.4-10.2); Carbon Dioxide 25 mmol/L (22-30); Chloride 103 mmol/L (98-107); Glucose 124 mg/dL (74-99); Potassium 4.4 mmol/L (3.5-5.1); Sodium 140 mmol/L (137-145)
[2017-07-01] MEDS: ASPIRIN 325 MG TAB PO SCH (09:17)
[2017-07-01] MEDS: HEPARIN SODIUM,PORCINE 5,000 UNIT/ML 1 ML VIAL SQ SCH (09:17)
[2017-07-01] MEDS: FAMOTIDINE 20 MG TAB PO SCH (09:17)
[2017-07-01] MEDS: FORMOTEROL FUMARATE 20 MCG/2 ML NEBU INHALATION SCH (09:22)
[2017-07-01] MEDS: IPRATROPIUM-ALBUTEROL 3 ML NEB INHALATION SCH (09:22)
[2017-07-01] MEDS: BUDESONIDE 1 MG/2 ML NEBU INHALATION SCH (09:22)
[2017-07-01 10:48] VITALS: BP 167/76; PULSE 64; TEMP 96.2
--- NOTE | 2017-07-01 11:06 | P.PN ---
Subjective Progress Note Date: 07/01/17 Principal diagnosis: Gastroesophageal reflux disease, mild asthma Progress note dated 06/30/2017 This is a 77-year-old female that we saw yesterday in consultation. She has a history of severe acid reflux disease as manifested by a 24-hour pH probe the review of a Pedro-DeMeester score of 57, less than 21 being normal. She apparently is going to have a laparoscopic Jesús fundop[place]. Because her asthma is active and because she's been on steroids quite frequently, the surgery has been delayed. Her asthma seems be triggered by her acid reflux disease. In addition, she has a history of skin cancer hyperlipidemia hypertension and hypothyroidism. Doing relatively well today. She's on appropriate medications. She was placed on DuoNeb steroids and both Pulmicort and a long-acting beta agonist solution. Again she's feeling better from the asthma standpoint. Also, today I reviewed the chart she cannot eat which tend to trigger acid reflux disease. We will make sure that she gets an acid reflux diarrhea. She is currently on appropriate medications for her gastroesophageal reflux disease and is seen my partner before in the office. Progress note dated 07/01/2017 77-year-old female with history of severe gastroesophageal reflux disease. She hasn't dissipated laparoscopic Jesús fundoplication by surgeon down in [facility] planned. He was hoping to have her off steroids before he did the surgery. It appears that her severe acid reflux disease causes her asthma become more active and at some reason why she's on steroids. In addition to severe acid reflux disease, and asthma, she has a history of skin cancer, hyperlipidemia, hypertension, hypothyroidism. Her asthma is under good control at the current time. We dropped her prednisone dose down to 20 mg a day. She denies any coughing wheezing or shortness of breath. She states she is not coughing up any phlegm. I did review with her the foods that she should and should not eat with her acid reflux disease. She understands. She is on an H2 histamine antagonist as well as a proton pump inhibitor. Objective - Vital Signs Vital signs: Vital Signs Temp 96.2 F L 07/01/17 08:00 Pulse 80 07/01/17 09:47 Resp 18 07/01/17 08:00 BP 167/76 07/01/17 08:00 Pulse Ox 92 L 07/01/17 08:00 Intake & Output 06/30/17 07/01/17 07/01/17 18:59 06:59 18:59 Intake Total 430 Output Total 600 Balance -170 Intake: IV 20 Invasive Line 2 20 Oral 410 Output: Urine 600 Other: Voiding Method Toilet # Voids 2 2 - Exam No acute distress, oriented 3. Not on any supplemental oxygen. HEENT examination is grossly unremarkable. Mucous membranes are moist. No oral lesions. Neck supple. Full range of motion. No adenopathy thyromegaly or neck vein distention. Cardiovascular examination reveals regular rhythm rate. S1-S2 normal. No S3 or S4. No discernible murmur noted. Lungs reveal mostly clear breath sounds. Her sounds are equal bilaterally. A few scattered rhonchi are noted. Abdomen soft bowel sounds are heard. No masses or tenderness. Extremities are intact. No cyanosis clubbing or edema. Skin is without rash or lesion. Neurologic examination is brief but nonfocal. - Labs CBC & Chem 7: 07/01/17 07:45 07/01/17 07:45 Labs: Abnormal Lab Results - Last 24 Hours (Table) 06/30/17 06/30/17 06/30/17 Range/Units 11:53 16:52 21:10 WBC (3.8-10.6) k/uL Neutrophils # (1.3-7.7) k/uL BUN (7-17) mg/dL Glucose (74-99) mg/dL POC Glucose (mg/dL) 149 H 142 H 160 H (75-99) mg/dL Calcium (8.4-10.2) mg/dL 07/01/17 07/01/17 07/01/17 Range/Units 05:57 07:45 07:45 WBC 20.8 H (3.8-10.6) k/uL Neutrophils # 17.4 H (1.3-7.7) k/uL BUN 32 H (7-17) mg/dL Glucose 124 H (74-99) mg/dL POC Glucose (mg/dL) 133 H (75-99) mg/dL Calcium 10.5 H (8.4-10.2) mg/dL Assessment and Plan Assessment: Assessment Severe acid reflux disease in a patient with a Pedro-DeMeester score a 57 Anticipated laparoscopic Jesús fundoplication, delayed because of the patient' s ongoing active asthma and use of corticosteroids. Asthma exacerbation, triggered by the patient's underlying acid reflux disease History of skin cancer History of hyperlipidemia History of hypertension History of hypothyroidism Plan: Plan dated 06/29/2017 Medications are reviewed. Chest x-ray is normal. We'll make sure she is on appropriate medications for her asthma. Additional recommendations and suggestions are forthcoming. Prognosis is guarded. We'll continue to follow. She'll make an appointment to follow with my partner in the near future. Plan dated 06/30/2017 The patient's medications. For her acid reflux disease and for her asthma have been reviewed. They are very appropriate. She's feeling much better today than compared to yesterday. She asked me to contact a physician was planning to do the surgery on her. I'll do that on Sunday. No additional recommendations are made. We'll continue to follow. Prognosis is guarded. Again I review the medications with her and also the foods that she cannot eat which includes chocolate, peppermint, tomatoes, citrus fruits, caffeine, etc. Plan dated 07/01/2017 From my perspective, the patient could be discharged home. The patient seemed be doing relatively well. We'll continue to follow closely. Chest x-ray is normal. Asthma is under better control. She could be discharged home on a home. That was related to the nurse. The patient's prednisone dose will be reduced down to 10 mg a day. The patient will continue on all the usual medications. She'll avoid certain foods such as caffeine alcoholic beverages tomatoes citrus fruits of chocolate peppermint, etc. Additional recommendations and suggestions are forthcoming. She should follow with my partner who she has seen before. Time with Patient: Less than 30
[2017-07-02] MEDS ORDERED: NON-FORMULARY DRUG (Fish Oil/Dha/Epa [Fish Oil 1,200 Mg Fish Oil] 1 CAP) PO SCH (09:00)
[2017-07-02] MEDS ORDERED: ASPIRIN 325 MG TAB PO SCH (09:00)
[2017-07-02] MEDS ORDERED: ASCORBIC ACID 500 MG TAB PO SCH (09:00)
--- NOTE | 2017-07-04 11:01 | CDI ---
Last Revision, March 2017 Documentation Clarification Form Date: 07/04/17 From: Henna Oscar Phone: If you have a question regarding this query, please contact Amberly Davis at [phone] between 8am and 5pm Admit Date: 06/30/2017 8:08:00 AM Patient Name: Shaye Mora Visit Number: [id number] Discharge Date: 07/01/17 ATTENTION: The Clinical Documentation Specialists (CDI) and [facility] Coding Staff appreciate your assistance in clarifying documentation. Please respond to the clarification below the line at the bottom and electronically sign. The CDI & [facility] Coding staff will review the response and follow-up if needed. Please note: Queries are made part of the Legal Health Record. If you have any questions, please contact the author of this message via ITS. Dr. Markos Correa Asthma exacerbation is documented throughout the record. Patient history/risk factors: Patient has a history of asthma and is maintained on daily steroids. Documentation in the history of present illness states that the patient was taken off of her steroids weeks ago for a scheduled procedure for her GERD. Clinical Indicators: Severe shortness of breath, difficulty breathing and wheezing. Radiology: CXR: No active cardiopulmonary disease. There is improved inspiration compared to old exam. Vital Signs: T. 99.0, P. 94, R. 20, BP 139/80, Pulse Ox 95 Treatment: Ventolin inhalation, Duoneb inhalation, pulmicort inhalation, perforomist inhalation Medication: IV methylprednisolone In your professional opinion, can you please further specify the following, if known? Severity: Mild intermittent Mild persistent Moderate persistent Severe persistent Other, please specify ____ Unable to determine Form or Type: Cough variant Childhood Exercise induced bronchospasm Extrinsic allergic Idiosyncratic Intrinsic nonallergic Late-onset Mixed Other, please specify____ Unable to determine MTDD
--- NOTE | 2017-07-11 12:41 | CDI ---
Last Revision, March 2017 Documentation Clarification Form Date: 07/11/17 From: Henna Oscar Phone: If you have a question regarding this query, please contact Amberly Davis at [phone] between 8am and 5pm. Admit Date: 06/30/2017 8:08:00 AM Patient Name: Shaye Mora Visit Number: [id number] Discharge Date: 07/01 ATTENTION: The Clinical Documentation Specialists (CDI) and [facility] Coding Staff appreciate your assistance in clarifying documentation. Please respond to the clarification below the line at the bottom and electronically sign. The CDI & [facility] Coding staff will review the response and follow-up if needed. Please note: Queries are made part of the Legal Health Record. If you have any questions, please contact the author of this message via ITS. Dr. Markos Correa Asthma exacerbation is documented throughout the record. Patient history/risk factors: Patient has a history of asthma and is maintained on daily steroids. Documentation in the history of present illness states that the patient was taken off of her steroids weeks ago for a scheduled procedure for her GERD. Clinical Indicators: Severe shortness of breath, difficulty breathing and wheezing. Radiology: CXR: No active cardiopulmonary disease. There is improved inspiration compared to old exam. Vital Signs: T. 99.0, P. 94, R. 20, BP 139/80, Pulse Ox 95 Treatment: Ventolin inhalation, Duoneb inhalation, pulmicort inhalation, perforomist inhalation Medication: IV methylprednisolone In your professional opinion, can you please further specify the following, if known? Severity: Mild intermittent Mild persistent Moderate persistent Severe persistent Other, please specify ____ Unable to determine Form or Type: Cough variant Extrinsic allergic Idiosyncratic Intrinsic nonallergic Late-onset Mixed Other, please specify____ Unable to determine MTDD
--- NOTE | 2017-07-21 20:20 | DS ---
DISCHARGE SUMMARY DATE OF ADMISSION: 06/28/2017. DATE OF DISCHARGE: 07/01/2017. DISCHARGE DIAGNOSES: 1. Chronic obstructive pulmonary disease with acute exacerbation. 2. Acute bronchitis. 3. Acute on chronic asthma. 4. Hypertensive cardiovascular disease. 5. Hypothyroidism. 6. Gastroesophageal reflux disease. 7. Anxiety disorder. This is a 77-year-old white female who was brought to the emergency room because of her acute exacerbation of asthma and COPD. The patient is known to have chronic asthma and her stamping die maker Dr. Lin is of the opinion that her asthma is triggered by her gastroesophageal reflux disease and she has been scheduled for a surgical treatment for this reflux disease and possibly laparoscopic fundoplication. Preparing for this surgery, patient was trying to hold the prednisone, but because of the recurrent episode of acute asthma, the patient has not been able to completely stop the prednisone and the patient is currently having another episode of acute asthma. She was evaluated in the ER. Her CBC showed a WBC count of 8.5 and hemoglobin 14.1, platelet count 261,000. Sodium 142, potassium 4, BUN 17 and creatinine 0.60, glucose 159. Cardiac enzymes are within normal limits. The patient was admitted to the hospital for further evaluation and treatment. For details of the physical examination at the time of admission, please refer to the history and physical. HOSPITAL COURSE: The patient was admitted to telemetry and her heart was monitored and serial EKGs and cardiac enzymes were obtained. They were all within normal limits. The patient was seen by [facility] in consultation and recently patient did not have any acute cardiac problems and the patient was started on IV Solu-Medrol. The patient was seen by Dr. Lin in consultation. He was following the patient and also Dr. Lin placed her on Protonix for the gastroesophageal reflux disease and the patient was seen by Dr. Meseret Vargas, calender wind up tender, and Dr. Vargas was not recommending any further evaluation or any treatments, as the patient is already being scheduled for a surgical treatment by a surgeon outside this area. The patient's symptoms improved and Dr. Lin felt that she could be discharged and will make further arrangements for her to go for the surgical treatment. Accordingly, the patient was discharged home on 07/01/2017 and she was advised to continue on her previous home medications, including albuterol inhaler 2 puffs b.i.d. and aspirin 325 mg p.o. daily, gabapentin 300 mg 1 daily, Ativan 0.5 mg daily p.r.n., Synthroid 50 mcg daily, Singulair 10 mg daily at bedtime, omeprazole 40 mg b.i.d., Zantac 150 mg p.o. daily, and she was also given prednisone 10 mg p.o. b.i.d. for 6 days, Crestor 20 mg p.o. daily and she may continue all her nocy-cmm-fofybsi medications, including all the vitamins. She will be followed by her primary care physician, Dr. Galloway, in 1 week and also she will be followed by Dr. Lin for her pulmonary problems. MMODL / IJN: [id number] /
--- NOTE | 2017-07-25 14:20 | CDI ---
Last Revision, March 2017 Documentation Clarification Form Date: 07/25/17 From: Henna Oscar Phone: If you have a question regarding this query, please contact Keily Davis at [phone] between 8am and 5pm Admit Date: 06/30/2017 8:08:00 AM Patient Name: Shaye Mora Visit Number: [id number] Discharge Date: 07/01/17 ATTENTION: The Clinical Documentation Specialists (CDI) and [facility] Coding Staff appreciate your assistance in clarifying documentation. Please respond to the clarification below the line at the bottom and electronically sign. The CDI & [facility] Coding staff will review the response and follow-up if needed. Please note: Queries are made part of the Legal Health Record. If you have any questions, please contact the author of this message via ITS. Dr. Markos Correa Thank you for signing the last query. Please document a response to this query before signing it. Asthma exacerbation is documented throughout the record. Patient history/risk factors: Patient has a history of asthma and is maintained on daily steroids. Documentation in the history of present illness states that the patient was taken off of her steroids weeks ago for a scheduled procedure for her GERD. Clinical Indicators: Severe shortness of breath, difficulty breathing and wheezing. Radiology: CXR: No active cardiopulmonary disease. There is improved inspiration compared to old exam. Vital Signs: T. 99.0, P. 94, R. 20, BP 139/80, Pulse Ox 95 Treatment: Ventolin inhalation, Duoneb inhalation, pulmicort inhalation, perforomist inhalation Medication: IV methylprednisolone In your professional opinion, can you please further specify the following, if known? Severity: Mild intermittent Mild persistent Moderate persistent Severe persistent Other, please specify ____ Unable to determine Form or Type: Cough variant Childhood Exercise induced bronchospasm Extrinsic allergic Idiosyncratic Intrinsic nonallergic Late-onset Mixed Other, please specify____ Unable to determine MTDD
== END 2017-07-01 12:31 | disposition home or self-care (01) | DRG 202 ==
LOC: EC 20:28 → 6SEL 23:49 → OBSVTOIN 06-30 08:08
PROVIDERS: ADMIT Internal Medicine; ATTEND Internal Medicine
DX: J45.901 Unspecified asthma with (acute) exacerbation (principal); J44.0 Chronic obstructive pulmonary disease with (acute) lower respiratory infection; J44.1 Chronic obstructive pulmonary disease with (acute) exacerbation; R06.03 Acute respiratory distress; I11.0 Hypertensive heart disease with heart failure; E03.9 Hypothyroidism, unspecified; I45.81 Long QT syndrome; C44.91 Basal cell carcinoma of skin, unspecified; E78.5 Hyperlipidemia, unspecified; F41.1 Generalized anxiety disorder; G47.33 Obstructive sleep apnea (adult) (pediatric); J20.9 Acute bronchitis, unspecified; K21.9 Gastro-esophageal reflux disease without esophagitis; R09.02 Hypoxemia; R79.1 Abnormal coagulation profile; E50.9 Vitamin A deficiency, unspecified; K44.9 Diaphragmatic hernia without obstruction or gangrene; R74.8 Abnormal levels of other serum enzymes; Z79.52 Long term (current) use of systemic steroids; Z79.82 Long term (current) use of aspirin; Z79.899 Other long term (current) drug therapy; K22.8 Other specified diseases of esophagus; Z87.891 Personal history of nicotine dependence; Z88.2 Allergy status to sulfonamides; Z91.14 Patient's other noncompliance with medication regimen; Z82.49 Family history of ischemic heart disease and other diseases of the circulatory system
CPT/HCPCS: 36415; 71046; 71275; 80048; 80053; 80061; 81003; 82550; 82553; 83735; 83880; 84484; 85025; 85379; 85730; 93005; 93306; 94640; 94760; 96365; 96376; 99285

== ENCOUNTER → 2017-07-30 | Day surgery (SDC) | payer MEDICARE, BC ==
[2017-07-27 12:16] VITALS: BMI 31.4
[~2017-07-30] MED LIST: LACTATED RINGERS 1,000 ML IV SCH; LIDOCAINE 1% 20 ML VIAL (10MG/ML) FOR IV START INTRADERMA PRN; MIDAZOLAM 2 MG/2 ML VIAL IV PRN
[2017-07-30 13:07] VITALS: BP 142/69; PULSE 68; RESP 16; TEMP 98.3
--- NOTE | 2017-08-03 08:32 | PCN ---
PROCEDURE NOTE DATE OF SERVICE: 07/30/2017 REQUESTING PHYSICIAN: Dr. Galloway and Dr. Lin. PREOPERATIVE DIAGNOSIS: Dysphagia. PROCEDURE PERFORMED: High-resolution impedance manometry. BRIEF HISTORY: Patient is a 77-year-old white female scheduled for an esophageal manometry as part of evaluation of dysphagia. PROCEDURE PERFORMED: High-resolution esophageal manometry. PROCEDURE: After informed consent was obtained from the patient, she was brought into the endoscopy unit. The manometry catheter was passed in and was gently advanced into the stomach. The study was performed by endoscopy nurse. Study results were interpreted using [place] classification. The following are the study results: 1. Lower esophageal sphincter: Mean IRP less than 32 mmHg. 2. Lower esophageal body: Mean DCI 1014 mmHg. 3. Distal latency less than 4.5%. 4. Peristaltic contractions 100%. 5. Bolus transit time: With liquids 100%, with solids 70%. INTERPRETATION: The above esophageal manometry study shows decreased lower esophageal sphincter pressures. The motility pattern involving the esophageal body is within normal limits with no evidence of esophageal dysmotility. There is no evidence of esophageal achalasia. MMODL / IJN: [id number] /
== END ==
LOC: ORWHC2ENDO 12:28
PROVIDERS: ATTEND Internal Medicine Gastroenterology
DX: R13.10 Dysphagia, unspecified (principal)
CPT/HCPCS: 91010

== ENCOUNTER → 2017-08-07 | Outpatient (CLI) | payer MEDICARE, BC ==
[2017-08-07 16:51] LABS: Basophils % (A) 0 %; Eosinophils # (A) 0.1 k/uL (0-0.7); Eosinophils % (A) 1 %; HCT 41.9 % (34.0-46.0); HGB 14.1 gm/dL (11.4-16.0); Lymphocytes % (A) 18 %; MCHC 33.5 g/dL (31.0-37.0); MCV 86.5 fL (80.0-100.0); Mean Platelet Volume 7.5; Monocytes # (A) 0.5 k/uL (0-1.0); Monocytes % (A) 4 %; Neutrophils # (A) 8.2 k/uL (1.3-7.7); Neutrophils % (A) 75 %; Platelet Count 304 k/uL (150-450); RBC 4.85 m/uL (3.80-5.40); RDW 14.1 % (11.5-15.5); WBC 10.9 k/uL (3.8-10.6)
== END ==
LOC: LABPAT 15:58
PROVIDERS: ATTEND Surgery
DX: Z01.812 Encounter for preprocedural laboratory examination (principal); K21.9 Gastro-esophageal reflux disease without esophagitis; D64.9 Anemia, unspecified; F17.200 Nicotine dependence, unspecified, uncomplicated
CPT/HCPCS: 36415; 85025; 86850; 86900; 86901

== ENCOUNTER 2017-08-09 12:37 | Day surgery (SDC) | payer MEDICARE, BC ==
[2017-08-06 15:59] VITALS: BMI 32.2
[~2017-08-09 12:37] MED LIST changes: +DEXAMETHASONE SOD PHOSPHATE 10 MG/ML 1 ML VIAL IV ONE; -LACTATED RINGERS 1,000 ML IV SCH; -LIDOCAINE 1% 20 ML VIAL (10MG/ML) FOR IV START INTRADERMA PRN; -MIDAZOLAM 2 MG/2 ML VIAL IV PRN; +MORPHINE SULFATE 4 MG/ML SYRINGE IV PRN; +ONDANSETRON ODT 4 MG TAB PO ONE; +ceFAZolin IN SWFI 2 GM/20 ML SYRINGE IVP ONE
[2017-08-09] MEDS: LACTATED RINGERS 1,000 ML IV SCH (13:42)
[2017-08-09] MEDS ORDERED: LIDOCAINE 1% 20 ML VIAL (10MG/ML) FOR IV START INTRADERMA ONE (13:46)
[2017-08-09 13:50] LABS: Glucose,Whole Blood 109 mg/dL (75-99)
[2017-08-09] MEDS ORDERED: HYDROCORTISONE SUCCINATE 100 MG/2 ML VIAL IVP ONE ×2 (13:54)
[2017-08-09] MEDS ORDERED: HEPARIN SODIUM,PORCINE 5,000 UNIT/ML 1 ML VIAL SQ ONE (14:01)
[2017-08-09] MEDS ORDERED: SUCCINYLCHOLINE CHLORIDE 100 MG/5 ML SYR IV ONE (14:15)
[2017-08-09] MEDS ORDERED: PROPOFOL 10 MG/ML 20 ML VIAL IV ONE (14:15)
[2017-08-09] MEDS ORDERED: MIDAZOLAM 2 MG/2 ML VIAL ONE (14:15)
[2017-08-09] MEDS ORDERED: ROCURONIUM BROMIDE 10 MG/ML 10 ML VIAL IV ONE (14:15)
[2017-08-09] MEDS ORDERED: HYDROCORTISONE SUCCINATE 100 MG/2 ML VIAL ONE (14:15)
[2017-08-09] MEDS ORDERED: fentaNYL (PF) 50 MCG/ML 2 ML AMP ONE (14:15)
[2017-08-09] MEDS ORDERED: BUPIVACAINE (PF) 0.25% 30 ML VIAL SQ ONE (14:36)
[2017-08-09] MEDS ORDERED: LACTATED RINGERS 1,000 ML IV ONE (15:46)
[2017-08-09] MEDS ORDERED: ONDANSETRON 4 MG/2 ML VIAL IVP PRN (16:31)
[2017-08-09] MEDS ORDERED: MORPHINE SULFATE 4 MG/ML SYRINGE IVP PRN (16:31)
--- NOTE | 2017-08-09 16:44 | P.OP ---
Date of Procedure: 08/09/17 Procedure(s) Performed: PREOPERATIVE DIAGNOSIS: Hiatal hernia with reflux POSTOPERATIVE DIAGNOSIS: Same PROCEDURE: 1. Laparoscopic repair hiatal hernia 2. Toupee partial fundoplication SURGEON: Madeline EBL: Minimal ANESTHESIA: Gen. COMPLICATIONS: None OPERATIVE PROCEDURE: Patient was placed in the operating table in the supine position. The patient was placed under general anesthesia that time. The patient was then placed in lithotomy. The abdomen was prepped and draped in the usual sterile fashion. A 5 mm optical trocar was used to enter the peritoneal cavity in the left upper quadrant. Insufflation took place to 15 mmHg. An additional right 5 mm subxiphoid trocar was placed and then removed. The medium Eli hook was used to elevate the left lobe the liver anteriorly. 2 additional 5 mm trochars were placed in the right upper quadrant and left upper quadrant as well as a 10 mm trocar in the left upper quadrant inferiorly. All these were placed under direct dilatation. The patient's hiatus was inspected. The defect was seen. The defect was medium in size. The patient had a small to medium-sized vessel traversing the gastrohepatic ligament. This required division to repair the hernia properly. This was divided after the placement of 2-10 mm clips on either side divided in the middle using the LigaSure device. The phrenoesophageal ligament was circumferentially dissected. The posterior aspect of the stomach was visualized. Dissection in the hiatus took place in the esophagus was fully mobilized with 3 cm of the esophagus beneath the diaphragm. The proximal short gastric vasculature was divided using the LigaSure device. The posterior short gastrics were also dissected. The defect in the retrogastric space was adequate. I was able to hold the posterior wall of the fundus around retrogastric. Prior to that however the defect in the thompson was repaired. 2 separate 2-0 Ethibond sutures were placed and reapproximating the posterior crura. These were both tied down using the tying device. The 54-[place] bougie dilator was advanced into the stomach without difficulty. A partial wrap took place. This was approximately 270. The posterior aspect of the stomach was sutured to the posterior medial aspect of the esophagus using 2 separate 2-0 Ethibond sutures approximately 1-1.5 cm apart. Anteriorly the fundoplication took place reapproximating to the anterior aspect of the esophagus and sutured again using 2 separate 2-0 Ethibond sutures. All sutures were tied down using the tying device. This wrap was fairly loose. This did not appear to be causing any torsion. The dilator was removed. The liver retractor was removed. The insufflation was evacuated and the trochars were removed. The skin at all 5 sites was closed using 4-0 Monocryl sutures. Steri-Strips and sterile dressings were then applied. DISPOSITION: Stable to recovery room
[2017-08-09] MEDS ORDERED: diphenhydrAMINE 50 MG/ML 1 ML VIAL IVP ONE (16:55)
[2017-08-09] MEDS: MEPERIDINE 50 MG/ML SYRINGE IVP ONE ×2 (16:55→17:15)
[2017-08-09 19:03] LABS: Basophils % (A) 0 %; Eosinophils % (A) 0 %; HGB 13.1 gm/dL (11.4-16.0); Lymphocytes # (A) 1.2 k/uL (1.0-4.8); Lymphocytes % (A) 12 %; MCH 28.4 pg (25.0-35.0); MCV 88.8 fL (80.0-100.0); Mean Platelet Volume 7.3; Monocytes # (A) 0.3 k/uL (0-1.0); Monocytes % (A) 3 %; Neutrophils # (A) 9.1 k/uL (1.3-7.7); Neutrophils % (A) 85 %; Platelet Count 237 k/uL (150-450); RBC 4.62 m/uL (3.80-5.40); RDW 14.4 % (11.5-15.5); WBC 10.7 k/uL (3.8-10.6)
[2017-08-09 19:14] LABS: Anion Gap 8 mmol/L; Blood Urea Nitrogen 22 mg/dL (7-17); Calcium 9.2 mg/dL (8.4-10.2); Carbon Dioxide 29 mmol/L (22-30); Chloride 101 mmol/L (98-107); Glucose 152 mg/dL (74-99); Potassium 4.1 mmol/L (3.5-5.1); Sodium 138 mmol/L (137-145)
[2017-08-09] MEDS ORDERED: HYDROCORTISONE SUCCINATE 100 MG/2 ML VIAL IV ONE (20:00)
[2017-08-09] MEDS: ALBUTEROL NEBULIZED 2.5 MG/3 ML INHALATION SCH (20:46)
[2017-08-09] MEDS ORDERED: LORazepam 0.5 MG TAB PO PRN (20:46)
[2017-08-09] MEDS ORDERED: FAMOTIDINE 20 MG/2 ML VIAL IV SCH (21:00)
[2017-08-09] MEDS: predniSONE 10 MG TAB PO SCH (21:00)
[2017-08-09] MEDS ORDERED: GABAPENTIN 300 MG CAP PO SCH (21:00)
[2017-08-09] MEDS: D5-0.45% NACL WITH KCL 20MEQ/L 1,000 ML IV SCH (21:18)
[2017-08-09] MEDS: PANTOPRAZOLE 40 MG TABLET PO SCH (21:33)
[2017-08-09] MEDS: METOCLOPRAMIDE 5 MG/ML 2 ML VIAL IVP SCH (21:33)
[2017-08-10] MEDS: HEPARIN SODIUM,PORCINE 5,000 UNIT/ML 1 ML VIAL SQ SCH ×2 (00:49→09:17)
[2017-08-10 01:55] VITALS: RESP 18
[2017-08-10] MEDS: METOCLOPRAMIDE 5 MG/ML 2 ML VIAL IVP SCH ×3 (03:14→11:52)
[2017-08-10] MEDS: D5-0.45% NACL WITH KCL 20MEQ/L 1,000 ML IV SCH ×2 (03:15→09:43)
[2017-08-10] MEDS: LACTATED RINGERS 1,000 ML IV SCH (05:22)
[2017-08-10] MEDS ORDERED: LEVOTHYROXINE 50 MCG TAB PO SCH (06:30)
[2017-08-10] MEDS: PANTOPRAZOLE 40 MG TABLET PO SCH (07:01)
[2017-08-10] MEDS ORDERED: FAMOTIDINE 20 MG TAB PO SCH (09:00)
[2017-08-10] MEDS ORDERED: HYDROmorphone 4 MG TABLET PO PRN (09:11)
--- NOTE | 2017-08-10 09:15 | FL ---
EXAMINATION TYPE: FL esophagus cervic/pharynx DATE OF EXAM: 08/10/2017 LIMITED UGI-ESOPHAGRAM: CLINICAL HISTORY: Hiatal hernia and reflux, Jose De Jesus fundoplication surgery yesterday. TECHNIQUE: Limited esophagram is performed utilizing 25 oz of Isovue-370. A total of 22 seconds of f luoroscopic time was utilized during procedure. 8 spot images were saved during procedure. COMPARISON: CTA chest June 29, 2017. FINDINGS: The patient swallowed contrast without difficulty or delay. Esophageal peristalsis and mo tility are within normal limits. There is good flow of contrast along the diaphragmatic hiatus into t he stomach, there is no evidence of contrast extravasation to suggest leak. Surgical changes with cli ps and sutures at diaphragmatic hiatus are identified. No persistent hiatal hernia is seen. Patient r emains asymptomatic. IMPRESSION: No evidence of leak or significant obstruction status post Jose De Jesus fundoplication surgery yesterday.
[2017-08-10] MEDS: predniSONE 10 MG TAB PO SCH (09:16)
[2017-08-10] MEDS: ALBUTEROL NEBULIZED 2.5 MG/3 ML INHALATION SCH (11:01)
[2017-08-10 11:54] VITALS: BP 120/59; PULSE 59; TEMP 98.4
--- NOTE | 2017-08-10 12:55 | P.DS ---
Providers Expected date of discharge: 08/10/17 Attending physician: Bhavesh Correa Consults: 08/09/17 16:31 Consult Physician Routine Consulting Provider: Glynn Galloway Consult Reason/Comments: med mgmt Do you want consulting provider notified?: Yes Primary care physician: Glynn Galloway Hospital Course: Patient minute yesterday for elective partial fundoplication with hiatal hernia repair. Postoperatively the patient is done quite well. Upper GI shows no evidence of leak or obstruction. Currently tolerating clear liquids. She would like to go home today. Incisions are clean and dry. Labs show a normal white blood cell count. Will discharged today on a full liquid diet. She will follow up with me in 1 week. Plan - Discharge Summary Discharge Rx Participant: Yes New Discharge Prescriptions: No Action Cholecalciferol [Vitamin D3] 2,000 unit PO DIRECTED Aspirin 325 mg PO DIRECTED Rosuvastatin Calcium [Crestor] 20 mg PO HS Montelukast [Singulair] 10 mg PO HS Levothyroxine Sodium [Synthroid] 50 mcg PO DAILY Gabapentin [Neurontin] 300 mg PO HS Bisoprolol Fumarate [Zebeta] 5 mg PO HS Omeprazole 40 mg PO BID LORazepam [Ativan] 0.5 mg PO DAILY PRN PRN Reason: Anxiety Biotin 5 mg PO DIRECTED Albuterol Sulfate [Proair Hfa] 2 puff INHALATION RT-BID Ascorbic Acid [Vitamin C] 1,000 mg PO DIRECTED Calcium 1000mg 1,000 mg PO DIRECTED Chelated Magnesium 500mg 500 mg PO DIRECTED Fish Oil/Dha/Epa [Fish Oil 1,200 mg Fish Oil] 1 cap PO DIRECTED Folic Acid 0.4 mg PO DIRECTED Ranitidine HCl [Zantac] 150 mg PO DAILY predniSONE 10 mg PO BID 6 Days #30 tab Discharge Medication List Aspirin 325 mg PO DIRECTED 01/18/16 [History] Biotin 5 mg PO DIRECTED 01/18/16 [History] Bisoprolol Fumarate [Zebeta] 5 mg PO HS 01/18/16 [History] Cholecalciferol [Vitamin D3] 2,000 unit PO DIRECTED 01/18/16 [History] Gabapentin [Neurontin] 300 mg PO HS 01/18/16 [History] LORazepam [Ativan] 0.5 mg PO DAILY PRN 01/18/16 [History] Levothyroxine Sodium [Synthroid] 50 mcg PO DAILY 01/18/16 [History] Montelukast [Singulair] 10 mg PO HS 01/18/16 [History] Omeprazole 40 mg PO BID 01/18/16 [History] Rosuvastatin Calcium [Crestor] 20 mg PO HS 01/18/16 [History] Albuterol Sulfate [Proair Hfa] 2 puff INHALATION RT-BID 06/28/17 [History] Ascorbic Acid [Vitamin C] 1,000 mg PO DIRECTED 06/28/17 [History] Calcium 1000mg 1,000 mg PO DIRECTED 06/28/17 [History] Chelated Magnesium 500mg 500 mg PO DIRECTED 06/28/17 [History] Fish Oil/Dha/Epa [Fish Oil 1,200 mg Fish Oil] 1 cap PO DIRECTED 06/28/17 [ History] Folic Acid 0.4 mg PO DIRECTED 06/28/17 [History] Ranitidine HCl [Zantac] 150 mg PO DAILY 06/28/17 [History] predniSONE 10 mg PO BID 6 Days #30 tab 07/01/17 [Rx]
--- NOTE | 2017-08-10 18:08 | CONS ---
CONSULTATION ATTENDING PHYSICIAN: Dr. Bhavesh Correa. CONSULTING PHYSICIAN: Dr. Antonietta Galloway. CONSULTATION: Regarding medical management. HISTORY OF PRESENT ILLNESS: This 78-year-old female is status post hiatal hernia repair and fundoplication. The patient has a history of gastroesophageal reflux, suspected to be the precipitating cause for frequent episodes of bronchial asthma. The patient is doing better today post surgery. She denies any major symptoms of asthma. She has been on steroids still this day of surgery. The patient is followed by Dr. Lin and Dr. Foy on the outpatient. PAST MEDICAL HISTORY: Significant for hypertension for the past 3 years, history of gastroesophageal reflux, obstructive sleep apnea, and bronchial asthma. No history of any lung disease, liver disease, kidney disease, ulcers, TB, hepatitis. No history of any rheumatic fever, myocardial infarction or CVA. Does have history of hypothyroidism and is on replacement therapy. PAST SURGICAL HISTORY: Significant for a tonsillectomy, a colonoscopy in 2014, bilateral carpal tunnel syndrome release, and basal cell right lower eyelid. PERSONAL HISTORY: Smokes 1-2 packs per day. Patient smoked 1-2 packs per day for 20 years. Quit about 31 years ago. Alcohol about 2 glasses of wine per week. Vaccinations 2013 she had a Pneumovax and Zostavax. ALLERGIES: TO SULFA. MEDICATIONS: Included prednisone 10 mg b.i.d., Crestor 20 mg daily, 50 mg daily, omeprazole 40 mg b.i.d., Singulair 10 mg daily, Synthroid 50 mcg daily, Ativan 0.5 mg p.r.n., gabapentin 300 mg at q.h.s. folic acid 0.4 mg daily, fish oil, vitamin D3, magnesium, and calcium. Zebeta 5 mg at bedtime. Biotin 5 mg daily. Aspirin 325 mg daily. Ascorbic acid daily, and sulfate. SOCIAL HISTORY: Patient is , lives with spouse. FAMILY MEDICAL HISTORY: Father at the age of 81, CVA and had pneumonia. Mother at the age of 75, coronary artery disease. A brother at the age of 68. There is some form of autoimmune disease. Brother 71 history of osteoarthritis. The patient has a son 56 in good health and a son 54 in good health. Daughter 48 in good health. REVIEW OF SYSTEMS: NEURO: Denies any headaches, dizziness. No symptoms of TIA, syncope, seizures. Psych: No anxiety or depression. Cardiac: No chest pain, angina or palpitations. Respiratory denies shortness of breath, cough, hemoptysis. GI no nausea, vomiting, abdominal pain, diarrhea. No bowel movement. no symptoms of dysuria or hematuria. Extremities denies pain, edema. Constitutional: No fever or chills. PHYSICAL EXAMINATION: Pleasant female at present in no distress. Vital signs revealed temperature 98, pulse 64, respirations 18, blood pressure 109/62, pulse ox 93% on room air. HEENT: Normocephalic. NECK: Supple. No JVD. Pupils reactive. Oral cavity is moist. CHEST: Clear to auscultation and percussion. Cardiac normal S1, S2 with no gallops, murmurs, rubs appreciated. Abdomen mildly tender. Bowel sounds active. Extremities reveal no edema. No tenderness. Good pulses. NEUROLOGIC: Awake, alert, oriented x3 with well-coordinated movements. LABORATORY ASSESSMENT: Preop white count was 10.7 related to steroid use. The BUN was 22, creatinine 0.6. Normal electrolytes. Glucose was 152. ASSESSMENT: 1. Bronchial asthma, stable. 2. Gastroesophageal reflux disease. 3. Status post a hiatal hernia repair and fundoplication. 4. Steroid-induced hyperglycemia. PLAN: The patient at present is stable. Continue present medical regimen. Patient's condition discussed with the patient. Patient's steroids to be gradually weaned off. The patient will continue on the same medications as she was at home. Patient's condition discussed with the patient. Prognosis guarded. MMODL / IJN: [id number] /
== END 2017-08-10 13:40 | disposition home or self-care (01) ==
LOC: OR 12:37 → 6PED 16:08 → OR 08-10 13:40
PROVIDERS: ATTEND Surgery
DX: K44.9 Diaphragmatic hernia without obstruction or gangrene (principal); K21.9 Gastro-esophageal reflux disease without esophagitis; T38.0X5A Adverse effect of glucocorticoids and synthetic analogues, initial encounter; R73.9 Hyperglycemia, unspecified; J44.9 Chronic obstructive pulmonary disease, unspecified; E03.9 Hypothyroidism, unspecified; I10 Essential (primary) hypertension; I35.1 Nonrheumatic aortic (valve) insufficiency; E78.00 Pure hypercholesterolemia, unspecified; G47.33 Obstructive sleep apnea (adult) (pediatric); Z99.89 Dependence on other enabling machines and devices; Z82.49 Family history of ischemic heart disease and other diseases of the circulatory system; Z79.82 Long term (current) use of aspirin; Z79.890 Hormone replacement therapy; Z79.52 Long term (current) use of systemic steroids; Z79.899 Other long term (current) drug therapy; Z88.2 Allergy status to sulfonamides; Z87.891 Personal history of nicotine dependence
CPT/HCPCS: 94640; 94760; 80048; 85025; 74210; 43281; J2250; J1200; J1644 ×2; J1100; J2765 ×2; J1720; J2175; J3010; J0330; J2704; J7512; J0690; Q9967; 86850; 86900; 86901

== ENCOUNTER 2017-11-01 13:07 | Emergency (ER) | payer MEDICARE, BC ==
[2017-11-01 13:22] VITALS: TEMP 98.2
[2017-11-01] MEDS ORDERED: IPRATROPIUM-ALBUTEROL 3 ML NEB INHALATION STA (13:51)
[2017-11-01] MEDS ORDERED: methylPREDNISolone SOD SUCCI 125 MG/2 ML VIAL IV STA (13:51)
--- NOTE | 2017-11-01 13:54 | ED ---
General Adult HPI - General Chief complaint: Shortness of Breath Stated complaint: CARLOS Time Seen by Provider: 11/01/17 13:42 Source: patient, RN notes reviewed Mode of arrival: ambulatory Limitations: no limitations - History of Present Illness Initial comments: Patient is a pleasant 77-year-old female presenting to the emergency department with difficulty breathing. Symptoms have progressed over the past week. Patient does have cough with dubois colored sputum occasionally. No fevers. No chest pain. Patient has been increasing her home steroid use and took 30 mg today. Despite this symptoms worsen. Symptoms are similar to previous COPD. - Related Data Home Medications Medication Instructions Recorded Confirmed Aspirin 325 mg PO DAILY 01/18/16 11/01/17 Biotin 5 mg PO DAILY 01/18/16 11/01/17 Bisoprolol Fumarate [Zebeta] 5 mg PO DAILY 01/18/16 11/01/17 Cholecalciferol [Vitamin D3] 2,000 unit PO DAILY 01/18/16 11/01/17 Gabapentin [Neurontin] 300 mg PO QAM 01/18/16 11/01/17 LORazepam [Ativan] 0.5 mg PO Q6H PRN 01/18/16 11/01/17 Levothyroxine Sodium [Synthroid] 50 mcg PO DAILY 01/18/16 11/01/17 Montelukast [Singulair] 10 mg PO HS 01/18/16 11/01/17 Omeprazole 40 mg PO BID 01/18/16 11/01/17 Rosuvastatin Calcium [Crestor] 20 mg PO DAILY 01/18/16 11/01/17 Albuterol Sulfate [Proair Hfa] 2 puff INHALATION RT-BID 06/28/17 11/01/17 Ascorbic Acid [Vitamin C] 1,000 mg PO DAILY 06/28/17 11/01/17 Calcium 1000mg 1,000 mg PO DAILY 06/28/17 11/01/17 Chelated Magnesium 500mg 500 mg PO DAILY 06/28/17 11/01/17 Fish Oil/Dha/Epa [Fish Oil 1,200 1 cap PO DAILY 06/28/17 11/01/17 mg Fish Oil] Folic Acid 0.4 mg PO DAILY 06/28/17 11/01/17 Ranitidine HCl [Zantac] 150 mg PO DAILY 06/28/17 11/01/17 Multivitamins, Thera [Multivitamin 1 tab PO DAILY 11/01/17 11/01/17 (formulary)] predniSONE 30 mg PO ONCE PRN 11/01/17 11/01/17 Previous Rx's Medication Instructions Recorded Azithromycin [Zithromax Z-pack] 250 mg PO DIRECTED #6 tab 11/01/17 methylPREDNISolone Dose Pack 24 mg PO DAILY #1 tab 11/01/17 [Medrol Dose Pack] Allergies Allergy/AdvReac Type Severity Reaction Status Date / Time Sulfa (Sulfonamide Allergy Rash/Hives Verified 11/01/17 14:25 Antibiotics) Review of Systems ROS Statement: Those systems with pertinent positive or pertinent negative responses have been documented in the HPI. ROS Other: All systems not noted in ROS Statement are negative. Constitutional: Denies: fever Eyes: Denies: eye pain ENT: Denies: ear pain Respiratory: Reports: cough, dyspnea Cardiovascular: Denies: chest pain Endocrine: Reports: fatigue Gastrointestinal: Denies: abdominal pain Genitourinary: Denies: dysuria Musculoskeletal: Denies: back pain Skin: Denies: rash Neurological: Denies: weakness Past Medical History Past Medical History: Asthma, Cancer, GERD/Reflux, Hyperlipidemia, Hypertension , Thyroid Disorder Additional Past Medical History / Comment(s): BASAL CELL CA BELOW RT EYE REMOVED History of Any Multi-Drug Resistant Organisms: None Reported Past Surgical History: Tonsillectomy Additional Past Surgical History / Comment(s): CTR-BILAT WRISTS,EGD, COLONOSCOPY. BILAT CATARACTS REMOVED Past Anesthesia/Blood Transfusion Reactions: No Reported Reaction Past Psychological History: Anxiety Smoking Status: Former smoker Past Alcohol Use History: Rare Past Drug Use History: None Reported - Past Family History Mother Family Medical History: Coronary Artery Disease (CAD) Additional Family Medical History / Comment(s): ortho issues Father Family Medical History: Coronary Artery Disease (CAD), CVA/TIA General Exam Limitations: no limitations General appearance: alert, in no apparent distress Head exam: Present: atraumatic Eye exam: Present: normal appearance, PERRL ENT exam: Present: normal oropharynx Neck exam: Present: normal inspection Respiratory exam: Present: wheezes Cardiovascular Exam: Present: regular rate, normal rhythm GI/Abdominal exam: Present: soft. Absent: tenderness Extremities exam: Present: normal inspection. Absent: pedal edema, calf tenderness Neurological exam: Present: alert Psychiatric exam: Present: normal affect, normal mood Skin exam: Present: normal color Course Vital Signs 11/01/17 11/01/17 11/01/17 13:19 13:55 13:58 Temperature 98.2 F Pulse Rate 83 71 Respiratory 22 18 Rate Blood Pressure 134/76 149/71 O2 Sat by Pulse 90 L 95 Oximetry 11/01/17 11/01/17 14:08 14:17 Temperature Pulse Rate 73 77 Respiratory Rate Blood Pressure O2 Sat by Pulse Oximetry EKG Findings - EKG Comments: EKG Findings:: Normal sinus rhythm 74. SD 172. QRS 90. QT 4:30. QTC 477. Normal [place]. Normal QRS. Nonspecific ST-T. Medical Decision Making - Medical Decision Making Patient is reevaluated and is feeling much better. Patient requests discharge home. Patient ambulates well throughout the emergency department without complaints. Patient updated on results and need for close follow-up - Lab Data Result diagrams: 11/01/17 13:55 11/01/17 13:55 Lab Results 11/01/17 11/01/17 Range/Units 13:55 13:55 WBC 10.1 (3.8-10.6) k/uL RBC 4.48 (3.80-5.40) m/uL Hgb 12.6 (11.4-16.0) gm/dL Hct 38.7 (34.0-46.0) % MCV 86.4 (80.0-100.0) fL MCH 28.1 (25.0-35.0) pg MCHC 32.5 (31.0-37.0) g/dL RDW 14.2 (11.5-15.5) % Plt Count 251 (150-450) k/uL Neutrophils % 64 % Lymphocytes % 21 % Monocytes % 4 % Eosinophils % 9 % Basophils % 0 % Neutrophils # 6.5 (1.3-7.7) k/uL Lymphocytes # 2.1 (1.0-4.8) k/uL Monocytes # 0.4 (0-1.0) k/uL Eosinophils # 0.9 H (0-0.7) k/uL Basophils # 0.0 (0-0.2) k/uL Sodium 141 (137-145) mmol/L Potassium 3.7 (3.5-5.1) mmol/L Chloride 108 H (98-107) mmol/L Carbon Dioxide 23 (22-30) mmol/L Anion Gap 10 mmol/L BUN 18 H (7-17) mg/dL Creatinine 0.61 (0.52-1.04) mg/dL Est GFR (CKD-EPI)AfAm >90 (>60 ml/min/1.73 sqM) Est GFR (CKD-EPI)NonAf 88 (>60 ml/min/1.73 sqM) Glucose 124 H (74-99) mg/dL Calcium 9.6 (8.4-10.2) mg/dL Total Bilirubin 0.3 (0.2-1.3) mg/dL AST 28 (14-36) U/L ALT 24 (9-52) U/L Alkaline Phosphatase 58 (38-126) U/L Total Protein 6.2 L (6.3-8.2) g/dL Albumin 3.8 (3.5-5.0) g/dL - Radiology Data Radiology results: image reviewed (Chest x-ray shows no acute process) Disposition Clinical Impression: Acute exacerbation of chronic obstructive airways disease Disposition: HOME SELF-CARE Condition: Stable Instructions: COPD (Chronic Obstructive Pulmonary Disease) (ED) Additional Instructions: Please follow-up with primary care physician and Dr. Lin in the next day or 2 for recheck. Return for fevers, worsening breathing, worsening symptoms or other concerns. Prescriptions: Azithromycin [Zithromax Z-pack] 250 mg PO DIRECTED #6 tab methylPREDNISolone Dose Pack [Medrol Dose Pack] 24 mg PO DAILY #1 tab Is patient prescribed a controlled substance at d/c from ED?: No Referrals: Rasheed Lin DO [Doctor of Osteopathic Medicine] - 1-2 days Glynn Galloway MD [Primary Care Provider] - 1-2 days Time of Disposition: 15:20
[2017-11-01 13:57] VITALS: RESP 18
[2017-11-01 14:13] LABS: Basophils % (A) 0 %; Eosinophils # (A) 0.9 k/uL (0-0.7); Eosinophils % (A) 9 %; HCT 38.7 % (34.0-46.0); HGB 12.6 gm/dL (11.4-16.0); Lymphocytes # (A) 2.1 k/uL (1.0-4.8); Lymphocytes % (A) 21 %; MCH 28.1 pg (25.0-35.0); MCHC 32.5 g/dL (31.0-37.0); MCV 86.4 fL (80.0-100.0); Monocytes # (A) 0.4 k/uL (0-1.0); Monocytes % (A) 4 %; Neutrophils # (A) 6.5 k/uL (1.3-7.7); Neutrophils % (A) 64 %; Platelet Count 251 k/uL (150-450); RBC 4.48 m/uL (3.80-5.40); RDW 14.2 % (11.5-15.5); WBC 10.1 k/uL (3.8-10.6)
[2017-11-01 14:28] LABS: ALT 24 U/L (9-52); AST 28 U/L (14-36); Albumin 3.8 g/dL (3.5-5.0); Alkaline Phosphatase 58 U/L (38-126); Anion Gap 10 mmol/L; Blood Urea Nitrogen 18 mg/dL (7-17); Calcium 9.6 mg/dL (8.4-10.2); Carbon Dioxide 23 mmol/L (22-30); Chloride 108 mmol/L (98-107); Glucose 124 mg/dL (74-99); Potassium 3.7 mmol/L (3.5-5.1); Sodium 141 mmol/L (137-145); Total Bilirubin 0.3 mg/dL (0.2-1.3); Total Protein 6.2 g/dL (6.3-8.2)
--- NOTE | 2017-11-01 14:46 | XR ---
EXAMINATION TYPE: XR chest 2V DATE OF EXAM: 11/01/2017 COMPARISON: 06/28/2017 HISTORY: Shortness of breath TECHNIQUE: Frontal and lateral views of the chest are obtained. FINDINGS: Scattered senescent parenchymal changes noted. Hyperinflation compatible with COPD. No evidence for infiltrate. No evidence for atelectasis. Heart size is stable. Mediastinal structures are stable and grossly unremarkable. No evidence for hilar prominence. Degenerative changes dorsal spine. IMPRESSION: 1. No evidence for acute pulmonary disease.
[2017-11-01 15:19] VITALS: BP 132/61; PULSE 82
== END 2017-11-01 15:30 | disposition home or self-care (01) ==
LOC: EC 13:07
DX: J44.1 Chronic obstructive pulmonary disease with (acute) exacerbation (principal); K21.9 Gastro-esophageal reflux disease without esophagitis; I10 Essential (primary) hypertension; E07.9 Disorder of thyroid, unspecified; F41.9 Anxiety disorder, unspecified; Z85.828 Personal history of other malignant neoplasm of skin; Z87.891 Personal history of nicotine dependence; Z79.899 Other long term (current) drug therapy; Z88.2 Allergy status to sulfonamides
CPT/HCPCS: 36415; 94640; 93005; 80053; 85025; 71046; 99285; 96374; J2930

== ENCOUNTER → 2020-05-11 | Outpatient (CLI) | payer MEDICARE, BC ==
--- NOTE | 2020-05-12 11:57 | BD ---
EXAMINATION TYPE: Axial Bone Density DATE OF EXAM: 05/11/2020 COMPARISON: 03/21/2017 CLINICAL HISTORY: Height: 63.2 IN Weight: 192 LBS RISK FACTORS HISTORY OF: Family History of Osteoporosis: YES MOTHER Active: MODERATE Postmenopausal woman: AGE 45 Take estrogen and/or progesterone medications: NOT NOW How long: TOOK PREMARIN FOR 20 YEARS MEDICATIONS: Thyroid Medications: YES Which medication: Synthroid How Lon+ YEARS Additional Medications: VIT D, SYNTHROID, BLOOD PRESSURE MEDS, LOW DOSE ASPIRIN, OMEPRAZOLE, EXAM MEASUREMENTS: Bone mineral densitometry was performed using the [employer] System. Bone mineral density as measured about the Lumbar spine is: ----- L1-L4(G/cm2): 1.055 T Score Values are as follows: ----- L2: -1.2 ----- L3: -0.2 ----- L4: -0.9 ----- L1-L4: -1.0 Bone mineral density has: Decreased -4.3% since study of: 03/21/2017 Bone mineral density about the R hip (g/cm2): 0.668 Bone mineral density about the L hip (g/cm2): 0.738 T Score values are as follows: -----R Neck: -2.7 -----L Neck: -2.2 -----R Total: -2.3 -----L Total: -1.7 Bone mineral density has: Decreased -9.4% since study of: 03/21/2017 IMPRESSION: Osteoporosis (T Score less than -2.5). There is increased fracture risk and therapy is usually indicated based on age. Re-Screen 1-2 years. NOTE: T-SCORE=SD OF THE YOUNG ADULT MEAN.
== END | disposition home or self-care (01) ==
LOC: RADBDWWP 15:40
PROVIDERS: ATTEND Internal Medicine
DX: M81.0 Age-related osteoporosis without current pathological fracture (principal)
CPT/HCPCS: 77080

== ENCOUNTER → 2020-08-18 | Outpatient (CLI) | payer MEDICARE, BC ==
--- NOTE | 2020-08-18 13:10 | FL ---
EXAMINATION TYPE: FL barium swallow w video DATE OF EXAM: 08/18/2020 COMPARISON: NONE HISTORY: Choking sensation TECHNIQUE: Fluoroscopy. FINDINGS: Fluoroscopic guidance was provided for the procedure performed in conjunction with the [facility] pathology department. Please see complete report forthcoming from the Speech Pathology departmen t. Various consistencies from thin liquid to solids were administered. Fluoroscopy time 61 seconds. Number of images: 0. No aspiration or penetration was evident. No significant pooling was observed in the vallecula. There was normal propulsion of the bolus. IMPRESSION: 1. Normal modified barium swallow
== END | disposition home or self-care (01) ==
LOC: RADFLMAIN 11:25
PROVIDERS: ATTEND Internal Medicine
DX: R09.89 Other specified symptoms and signs involving the circulatory and respiratory systems (principal)
CPT/HCPCS: 74230

== ENCOUNTER → 2020-09-16 | Outpatient (CLI) | payer MEDICARE, BC ==
--- NOTE | 2020-09-16 21:00 | CONS ---
CONSULTATION DATE OF SERVICE: 09/16/2020. 80-year-old lady has been evaluated in the [facility] for obstructive sleep apnea- hypopnea syndrome. The patient has obstructive sleep apnea treated. HISTORY OF PRESENT ILLNESS/SLEEP-WAKE EVALUATION: The patient has a history of obstructive sleep apnea treated since 2016. The patient continues to use her BiPAP equipment every night but recently started to feel more tired during the day than before. SLEEP SCHEDULE: Sleep schedule from 10 or 11 p.m. until 7 or 8 a.m. FALLING ASLEEP: No problems with falling asleep, although she has a TV set in bedroom. DURING SLEEP: She usually sleeps on the side position. She wakes up from sleep once with nocturia. DURING THE DAY/SLEEP WAKE EVALUATION: In the morning, patient wakes up tired but may feel some tiredness during the daytime sleepiness. [place] Sleepiness Scale increased to 13. During the day she may take a couple periods of rest. No history of sleep paralysis or cataplexy. PAST MEDICAL HISTORY: 1. Positive for depression. 2. Asthma. 3. Acid reflux. 4. Allergies. 5. Hyperlipidemia. PAST SURGICAL HISTORY: Fundoplication. MEDICATIONS: Escitalopram 10 mg once a day, levothyroxine 50 mcg once a day. Neurontin 300 mg once a day, Advair inhaler once a day, omeprazole 20 mg once a day, montelukast 10 mg once a day. Crestor 20 mg once a day, amlodipine 5 mg once a day, Ativan 0.5 mg as needed, aspirin 81 mg once a day. SOCIAL HISTORY: Quit smoking 20 years ago. Alcohol consumption: Occasional glass of wine. REVIEW OF SYSTEMS: Feeling tiredness and sleepiness. Soft and awakenings from sleep. I checked the patient BiPAP unit. Pressure is 10/6. Usage is 28/30 nights and 26/30 nights for more than 4 hours. Average usage is 6.3 hours per night. Leak 23 L/minute. Apnea-hypopnea index 9.3, which includes a central apnea-hypopnea index 6.5. PHYSICAL EXAMINATION: GENERAL: A pleasant lady without distress. BP 127/53, HR 59, RR 15, height 5 feet 4 inches, weight 193, BMI 33.1, temperature 98.2, oxygen saturation at room air 97%. HEENT: PERRLA, EOMI, evaluation of oropharynx showed tongue protrudes midline. NECK: Supple, no JVD. Thyroid is not palpable. LUNGS: Clear to percussion and to auscultation. Good air exchange. No wheezing or rhonchi. HEART: S1, S2 regular. No murmurs, gallops, or rubs. ABDOMEN: Soft and nontender. Bowel sounds are present. No organomegaly appreciated. EXTREMITIES: No clubbing or cyanosis. SACK FILLER: Awake, alert, and oriented X3. Cranial nerves 2 to 7 intact. There is no fasciculation or atrophy. noted. No focal deficits observed. IMPRESSION: 1. Obstructive sleep apnea-hypopnea syndrome with apnea-hypopnea index 22 based on previous study in 2009. The patient demonstrated good compliance with treatment benefitting from treatment, recently started to feel more tired while using CPAP equipment. Present pressure 10/6 cm of water. The AHI 9.3 including central, apnea-hypopnea index 6.5. 2. Obesity. 3. Depression. 4. Asthma. 5. Acid reflux. 6. Allergies. 7. Hyperlipidemia. 8. Status post chondroplasty. PLAN: 1. I adjusted the BiPAP unit, pressure up to 11/7 cm of water. 2. Prescription for all necessary CPAP supplies including DreamWear under the nose medium size mask, heated tube filters. 3. Patient should continue to use BiPAP equipment every night for the whole night. 4. Watching weight. 5. Sleep hygiene with regular time in bed for 8 hours. 6. No driving if feeling sleepiness. 7. I will see patient for follow-up visit in several months to evaluate her clinical response on treatment and show that her feeling of refreshed in the morning improved and quality of sleep improved. If not, we may consider adjustment of the pressure or getting a new BiPAP unit. Thank you very much for allowing me to participate in management of your patient. Sincerely, Juan Jose Mckeon MD, PhD, FAASM Diplomat of [employer] Branch [facility] [place] MMMARISOLL / CHELSEAN: [id number] /
== END ==
LOC: SLEEP 14:39
PROVIDERS: ATTEND Internal Medicine
DX: G47.33 Obstructive sleep apnea (adult) (pediatric) (principal); Z99.81 Dependence on supplemental oxygen; E66.9 Obesity, unspecified; F32.9 Major depressive disorder, single episode, unspecified; J45.909 Unspecified asthma, uncomplicated; K21.9 Gastro-esophageal reflux disease without esophagitis; T78.40XA Allergy, unspecified, initial encounter; E78.5 Hyperlipidemia, unspecified; Z88.2 Allergy status to sulfonamides; Z87.891 Personal history of nicotine dependence; Z68.33 Body mass index [BMI] 33.0-33.9, adult
CPT/HCPCS: 99211

== ENCOUNTER → 2020-12-22 | Outpatient (CLI) | payer MEDICARE, BC ==
--- NOTE | 2020-12-22 21:27 | SLS ---
SLEEP STUDY DATE OF SERVICE: 12/22/2020. 80-year-old lady has been followed in [facility] Center for treatment of obstructive sleep apnea-hypopnea syndrome. The patient continues to use her BiPAP equipment every night but she has some problems related to her machine. Machine is old, sometimes noisy. [place] Sleepiness Scale today is 8. I checked BiPAP unit. Pressure is 11/7, usage is 29/30 nights and 22/30 nights for more than 4 hours. Average 5.9 hours per night. Leak is 28 L/minute. Apnea-hypopnea index increased to 10.3 and this includes central index 7.3. MEDICATIONS: Advair inhaler, omeprazole, montelukast 10 mg once a day, Crestor 20 mg once a day, amlodipine 5 mg once a day. Ativan 0.5 mg as needed, Escitalopram 10 mg once a day, levothyroxine 50 mcg once a day, Neurontin 300 mg once a day. PHYSICAL EXAMINATION: GENERAL: Patient in no distress. BP 151/79, HR 67, RR 12, height 5 feet 4 inches, weight 190.8, temperature 97.1, body mass index 32.7, oxygen saturation at room air 95%. HEENT: PERRLA, EOMI, evaluation of oropharynx showed tongue protrudes midline. NECK: Supple, no JVD. Thyroid is not palpable. LUNGS: Clear to percussion and to auscultation. Good air exchange. No wheezing or rhonchi. HEART: S1, S2 regular. No murmurs, gallops, or rubs. ABDOMEN: Obese. Soft and nontender. Bowel sounds are present. No organomegaly appreciated. EXTREMITIES: No clubbing or cyanosis. DENTAL SECRETARY: Awake, alert, and oriented X3. Cranial nerves 2 to 7 intact. There is no fasciculation or atrophy. noted. No focal deficits observed. IMPRESSION: 1. Obstructive sleep apnea-hypopnea syndrome. Patient demonstrated great compliance with treatment. The apnea-hypopnea index increased to 10.3, which includes central apneas 7.3 index and patient BiPAP unit is old and needs to be replaced. It does not have options for automatic adjustments of the pressure. 2. Obesity. 3. Depression. 4. Asthma. 5. Acid reflux. 6. Allergies. 7. Hyperlipidemia. 8. Status post application. PLAN: 1. Prescription for automatic BiPAP unit, maximal inspiratory pressure 15, minimal expiratory pressure of 5 cm of water, pressure support of 4. 2. Patient will continue to use PAP equipment every night for the whole night. 3. Sleep hygiene with regular time in bed for at least 7-1/2 to 8 hours. 4. Precautions related to driving. No driving if feeling sleepiness. 5. I will maintain all necessary prescription for PAP supplies including mask, tube, filters. 6. Watching weight. 7. Follow-up visit in 6 months or earlier if patient has any problems. 8. If the patient will continue to have abnormalities of respiration on auto BiPAP, we may consider titration with BiPAP ST mode equipment. I spent with the patient and documentation 30 minutes. Thank you very much for allowing me to participate in management of your patient. Sincerely, Juan Jose Mckeon MD, PhD, FAASM Diplomat of [employer] Sleep Medicine Board of [employer] End [facility] [place] MMODL / CHELSEAN: [id number] /
== END ==
LOC: SLEEP 16:16
PROVIDERS: ATTEND Internal Medicine
DX: G47.33 Obstructive sleep apnea (adult) (pediatric) (principal); G47.31 Primary central sleep apnea; E66.9 Obesity, unspecified; F32.9 Major depressive disorder, single episode, unspecified; J45.909 Unspecified asthma, uncomplicated; K21.9 Gastro-esophageal reflux disease without esophagitis; T78.40XA Allergy, unspecified, initial encounter; E78.5 Hyperlipidemia, unspecified; Z68.32 Body mass index [BMI] 32.0-32.9, adult; Z88.2 Allergy status to sulfonamides; Z87.891 Personal history of nicotine dependence

== ENCOUNTER 2021-02-10 10:46 | Day surgery (SDC) | payer MEDICARE, BC ==
[2021-02-08 09:30] VITALS: BMI 32.5
[~2021-02-10 10:46] MED LIST changes: +ALBUTEROL NEB (CONC) 2.5 MG/0.5 ML INHALATION ONE; +ATROPINE SULFATE 0.4 MG/ML 1 ML VIAL IM ONE; -DEXAMETHASONE SOD PHOSPHATE 10 MG/ML 1 ML VIAL IV ONE; +LACTATED RINGERS 1,000 ML IV SCH; +LIDOCAINE 2% (PF) 20 MG/ML 5 ML VIAL INHALATION ONE; +LIDOCAINE VISCOUS 300 MG/15 ML CUP MUCOUS MEM ONE; -MORPHINE SULFATE 4 MG/ML SYRINGE IV PRN; -ONDANSETRON ODT 4 MG TAB PO ONE; -ceFAZolin IN SWFI 2 GM/20 ML SYRINGE IVP ONE
[2021-02-10 11:17] VITALS: RESP 18; TEMP 97.8
[2021-02-10 11:24] LABS: Glucose,Whole Blood 88 mg/dL (75-99)
[2021-02-10] MEDS ORDERED: LIDOCAINE 1% (10MG/ML) FOR IV START INTRADERMA ONE (11:25)
[2021-02-10] MEDS ORDERED: PROPOFOL 10 MG/ML 20 ML VIAL IV ONE (11:29)
[2021-02-10] MEDS ORDERED: GLYCOPYRROLATE 0.2 MG/ML 2 ML VIAL ONE (11:29)
[2021-02-10] MEDS ORDERED: LIDOCAINE 1% INJ 10MG/ML (20 ML MDV) ONE (11:29)
[2021-02-10] MEDS ORDERED: LIDOCAINE 2% INJ 20 MG/ML INTRATRACH ONE ×2 (11:33→11:42)
[2021-02-10 12:11] VITALS: BP 134/68; PULSE 79
--- NOTE | 2021-02-10 14:03 | PCN ---
PROCEDURE NOTE PROCEDURE PERFORMED: A bronchoscopy airway examination, therapeutic lavage, BAL right middle lobe. PREOP DIAGNOSIS: Chronic cough. POSTOP DIAGNOSIS: Chronic cough. ANESTHESIA: Provided general anesthesia. PROCEDURE: The procedure was done in room #1. There was informed consent and universal timeout. After the patient was being adequately sedated and being fully monitored, the bronchoscope was inserted through the right nostril. It passed through the right nasopharynx into the oropharynx. The hypopharynx was identified. The hypopharyngeal structures, including anterior commissure, true cords, false cords, arytenoids, piriform sinuses, right and left valleculae and epiglottis all appeared normal. The glottic opening was topicalized with lidocaine. The bronchoscope was pushed through the glottic opening into the trachea. We did a thorough evaluation of the trachea as the patient felt like there was something stuck in her trachea. There was no mass, tumor, or lesion or any secretions noted. The tracheal nacho was sharp. The right and left mainstem were topicalized. The right upper lobe and its 3 segments, right middle lobe and its 2 segments, right lower lobe and its 5 segments, left upper lobe proper and its 2 segments, lingula and its 2 segments and left lower lobe and its 4 segments were all found to be normal. There was minimal to mild amount of secretions throughout. They were foamy. They were suctioned without difficulty. The bronchoscope was then wedged into the right middle lobe. We did a formal BAL. Thirty mL was recovered. The patient tolerated the procedure well. There was no complications and the bronchoscope was withdrawn. I discussed the findings with the family. The fluid will be sent for analysis. MMODL / IJN: [id number] /
[2021-02-10 21:03] LABS: Appearance,BF Blood Tinged
[2021-02-10 21:12] LABS: Nucleated Cells, Body Fluid 120 /uL; RBC, Body Fluid 1960 /uL
[2021-02-10 21:14] LABS: Mononuclear WBC,Body Fluid 74 %; Polynuclear WBC,Body Fluid 22 %; Total Cells Counted,Body Fluid 100
== END 2021-02-10 12:32 | disposition home or self-care (01) ==
LOC: ORWHC2ENDO 10:46
PROVIDERS: ATTEND Internal Medicine Critical Care Medicine
DX: J40 Bronchitis, not specified as acute or chronic (principal); R05 Cough; J44.9 Chronic obstructive pulmonary disease, unspecified; E03.9 Hypothyroidism, unspecified; K21.9 Gastro-esophageal reflux disease without esophagitis; J30.2 Other seasonal allergic rhinitis; G47.33 Obstructive sleep apnea (adult) (pediatric); Z82.49 Family history of ischemic heart disease and other diseases of the circulatory system; Z87.891 Personal history of nicotine dependence; Z98.890 Other specified postprocedural states; Z97.2 Presence of dental prosthetic device (complete) (partial); Z88.6 Allergy status to analgesic agent; Z88.2 Allergy status to sulfonamides; Z88.8 Allergy status to other drugs, medicaments and biological substances
CPT/HCPCS: 88108; 88305; 89050; 87070; 87205; 31624; J2001 ×2; J2704

== ENCOUNTER 2021-09-20 10:01 | Day surgery (SDC) | payer MEDICARE, BC ==
[2021-09-16 09:37] VITALS: BMI 48.9
[~2021-09-20 10:01] MED LIST changes: -ALBUTEROL NEB (CONC) 2.5 MG/0.5 ML INHALATION ONE; -ATROPINE SULFATE 0.4 MG/ML 1 ML VIAL IM ONE; +LIDOCAINE 1% (10MG/ML) FOR IV START INTRADERMA PRN; -LIDOCAINE 2% (PF) 20 MG/ML 5 ML VIAL INHALATION ONE; -LIDOCAINE VISCOUS 300 MG/15 ML CUP MUCOUS MEM ONE
[2021-09-20 10:36] VITALS: TEMP 98
[2021-09-20] MEDS ORDERED: PROPOFOL 10 MG/ML 20 ML VIAL IV ONE (11:11)
[2021-09-20] MEDS ORDERED: LIDOCAINE 2% INJ 20 MG/ML (2 ML VIAL) ONE (11:11)
--- NOTE | 2021-09-20 11:17 | P.GSHP ---
History of Present Illness H&P Date: 09/20/21 Chief Complaint: GERD 81-year-old female here today for upper endoscopy. She has a history of previous hiatal hernia repair. Patient describes chronic voice hoarseness and feeling constricted in her throat. Denies dysphagia. Minimal reflux symptoms. No chest pain. Past Medical History Past Medical History: Asthma, Cancer, GERD/Reflux, Hyperlipidemia, Hypertension, Sleep Apnea/CPAP/BIPAP, Thyroid Disorder Additional Past Medical History / Comment(s): Hx Basal cell cancer under Rt eye, arthritis in hands/fingers. Uses BIPAP. c/o increased GERD, hoarseness and cough. Neuropathy in feet. History of Any Multi-Drug Resistant Organisms: None Reported Past Surgical History: Hernia Repair, Tonsillectomy Additional Past Surgical History / Comment(s): CTR-BILAT WRISTS, EGD, COLONOSCOPY, Bronchoscopy 02/2021. BILAT CATARACTS REMOVED. Jose De Jesus fundoplication. Past Anesthesia/Blood Transfusion Reactions: No Reported Reaction Smoking Status: Former smoker - Past Family History Mother Family Medical History: Coronary Artery Disease (CAD) Additional Family Medical History / Comment(s): ortho issues Father Family Medical History: Coronary Artery Disease (CAD), CVA/TIA Medications and Allergies Home Medications Medication Instructions Recorded Confirmed Type Aspirin 81 mg PO DAILY 01/18/16 09/16/21 History Biotin 2,500 mcg PO DAILY 01/18/16 09/16/21 History Cholecalciferol [Vitamin D3] 2,000 unit PO DAILY 01/18/16 09/16/21 History Gabapentin [Neurontin] 300 mg PO BID 01/18/16 09/16/21 History Levothyroxine Sodium [Synthroid] 50 mcg PO DAILY 01/18/16 09/16/21 History Montelukast [Singulair] 10 mg PO HS 01/18/16 09/16/21 History Rosuvastatin Calcium [Crestor] 20 mg PO HS 01/18/16 09/16/21 History Albuterol Sulfate [Proair Hfa] 2 puff INHALATION RT-BID PRN 06/28/17 09/20/21 History Calcium 1000mg 1,000 mg PO DAILY 06/28/17 09/16/21 History Chelated Magnesium 500mg 500 mg PO DAILY 06/28/17 09/16/21 History Fish Oil/Dha/Epa [Fish Oil 1,200 1 cap PO DAILY 06/28/17 09/16/21 History mg Fish Oil] Multivitamins, Thera [Multivitamin 1 tab PO DAILY 11/01/17 09/16/21 History (formulary)] Alendronate Sodium [Fosamax] 70 mg PO HOLLAND 02/08/21 09/20/21 History Escitalopram Oxalate [Lexapro] 10 mg PO DAILY 02/08/21 09/16/21 History amLODIPine [Norvasc] 5 mg PO HS 02/08/21 09/16/21 History Famotidine [Pepcid] 20 mg PO BID 09/16/21 09/16/21 History Ferrous Sulfate [Feosol] 325 mg PO DAILY 09/16/21 09/16/21 History Fluticasone/Salmeterol [Advair Hfa 2 puff INHALATION BID 09/16/21 09/20/21 History 115-21 Mcg Inhaler] LORazepam [Ativan] 0.5 mg PO BID PRN 09/16/21 09/20/21 History Pantoprazole [Protonix] 40 mg PO DAILY 09/16/21 09/16/21 History Allergies Allergy/AdvReac Type Severity Reaction Status Date / Time Sulfa (Sulfonamide Allergy Rash/Hives Verified 09/20/21 10:25 Antibiotics) Surgical - Exam Vital Signs Temp Pulse Resp BP Pulse Ox 98.0 F 69 18 146/65 95 09/20/21 10:34 09/20/21 10:34 09/20/21 10:34 09/20/21 10:34 09/20/21 10:34 Physical exam: General: Well-developed, well-nourished HEENT: Normocephalic, sclerae nonicteric Abdomen: Nontender, nondistended Extremities: No edema Neuro: Alert and oriented Assessment and Plan (1) GERD (gastroesophageal reflux disease) Narrative/Plan: 81-year-old female with GERD. We'll proceed with upper endoscopy. Current Visit: No Status: Acute Code(s): K21.9 - GASTRO-ESOPHAGEAL REFLUX DISEASE WITHOUT ESOPHAGITIS SNOMED Code(s): 792690583
--- NOTE | 2021-09-20 11:23 | P.PCN ---
Date of Procedure: 09/20/21 Procedure(s) Performed: Preoperative Dx: GERD, laryngitis Postoperative Dx: Mild gastritis, small hiatal hernia Procedure: EGD with Bx Anesthesia: Sedation Endoscopist: Dr. Correa Specimens: Antrum Endoscopic Procedure: The patient was on the endoscopy table in the left decubitus position. The Olympus gastroscope was inserted into the oropharynx and passed under direct visualization to the region of the third portion of the duodenum. From that point the scope was slowly withdrawn inspecting all surfa nisha carefully. There were no neoplastic inflammatory or polypoid lesions throughout the duodenum. The pylorus was widely patent. The stomach was carefully inspected. There was mild gastritis. A biopsy of the antrum took place to rule out H. pylori. Retroflexion revealed a small sliding hiatal hernia. The GE junction was 1-2 cm above the diaphragmatic hiatus. The esophagus was then carefully examined. There were no neoplastic inflammatory or polypoid lesions throughout the visualized esophagus. The patient was then taken to the recovery room in stable condition per anesthesia guidelines. Recommendations: No significant abnormalities to explain the patient's symptoms. Follow-up with pulmonary or ENT if symptoms persist.
[2021-09-20 11:32] VITALS: RESP 16
[2021-09-20 11:48] VITALS: BP 112/56; PULSE 59
== END 2021-09-20 12:09 | disposition home or self-care (01) ==
LOC: ORWHC2ENDO 10:01
PROVIDERS: ATTEND Surgery
DX: K21.9 Gastro-esophageal reflux disease without esophagitis (principal); K29.70 Gastritis, unspecified, without bleeding; K44.9 Diaphragmatic hernia without obstruction or gangrene; J45.909 Unspecified asthma, uncomplicated; E78.5 Hyperlipidemia, unspecified; I10 Essential (primary) hypertension; E07.9 Disorder of thyroid, unspecified; M19.049 Primary osteoarthritis, unspecified hand; G62.9 Polyneuropathy, unspecified; G47.33 Obstructive sleep apnea (adult) (pediatric); F41.9 Anxiety disorder, unspecified; Z85.828 Personal history of other malignant neoplasm of skin; Z87.891 Personal history of nicotine dependence; Z98.890 Other specified postprocedural states; Z79.82 Long term (current) use of aspirin; Z79.899 Other long term (current) drug therapy; Z79.890 Hormone replacement therapy; Z88.2 Allergy status to sulfonamides; Z98.42 Cataract extraction status, left eye; Z98.41 Cataract extraction status, right eye; Z82.61 Family history of arthritis; Z82.49 Family history of ischemic heart disease and other diseases of the circulatory system; Z82.3 Family history of stroke
CPT/HCPCS: 88305; 43239; J2704; J2001

== ENCOUNTER → 2021-10-31 | Outpatient (CLI) | payer MEDICARE, BC ==
--- NOTE | 2021-11-01 09:33 | MR ---
MR neck with and without contrast HISTORY: R 22.1 Multiplanar multisequence and postcontrast images obtained through the neck following 8.5 cc Gadavist IV No CT neck available for comparison. CT shows increased spatial resolution as compared to MRI There is motion on the exam which can limit sensitivity. At the level of the right parotid gland there is a focus of mixed intermediate and increased signal o n T1, increased signal in T2-weighted sequences superficial to the masseter muscle and measuring appr oximately 1.4 x 1.6 x 1.9 cm. There is some enhancement following contrast administration. Salivary g lands are otherwise symmetric. Skull base is normal. Orbits show symmetric appearance. Cerebelloponti ne angles are symmetric. At the level of the thyroid gland there is a T1 intermediate, T2 intense focus measuring 2.2 cm in AP dimension by 1.3 cm in transverse dimension involving the bulk of the right lobe of the thyroid, lef t lobe of the thyroid is not seen. Degenerative disc changes are present in the visualized spine. There is some facet arthropathy. No ev ident supraclavicular or cervical adenopathy. Airway thought to be patent. Base of the tongue is norm al. Level the true and false cords felt to be within normal limits. IMPRESSION: Indeterminate abnormality associated with the right parotid gland, consider primary saliv rama gland tumor, adenopathy not excluded. Possible colloid cyst involving the right lobe of the thyro id, consider dedicated imaging, correlate to exclude hypothyroidism.
== END | disposition home or self-care (01) ==
LOC: RADMRIMAIN 07:45
PROVIDERS: ATTEND Otolaryngology
DX: R22.1 Localized swelling, mass and lump, neck (principal); R05.9 Cough, unspecified
CPT/HCPCS: 70543; A9585

== ENCOUNTER 2021-11-14 12:53 | Day surgery (SDC) | payer MEDICARE, BC ==
[2021-11-14 13:32] VITALS: RESP 16; TEMP 98.3
[2021-11-14] MEDS ORDERED: ALPRAZolam 0.25 MG TAB PO STA (13:41)
--- NOTE | 2021-11-14 15:01 | US ---
ULTRASOUND GUIDED FNA AND CORE BIOPSY RIGHT PAROTID MASS: CLINICAL HISTORY: Abnormal MRI with right parotid mass FINDINGS: The procedure was explained to the patient. The risks, complications, benefits and alternatives were discussed and any questions were answered. Informed consent was obtained. Patient was placed supin e on the ultrasound table and prepped and draped in the usual sterile fashion. Utilizing a 25 gauge needle, two passes were made into the right parotid mass. Utilizing an 18-gauge core biopsy needle two passes were made into the right parotid mass. Patient was stable throughout the procedure. Pathology is pending. All elements of maximal barrier technique were utilized. IMPRESSION: 1. Successful ultrasound guided FNA and core biopsy right parotid mass.
--- NOTE | 2021-11-14 15:02 | US ---
ULTRASOUND GUIDED FNA THYROID BIOPSY: CLINICAL HISTORY: Right thyroid nodule FINDINGS: The procedure was explained to the patient. The risks, complications, benefits and alternatives were discussed and any questions were answered. Informed consent was obtained. Patient was placed supin e on the ultrasound table and prepped and draped in the usual sterile fashion. Utilizing a 25 gauge needle, five passes were made into the requested right thyroid nodule. Patient was stable throughout the procedure. Pathology is pending. All elements of maximal barrier technique were utilized. IMPRESSION: 1. Successful ultrasound guided FNA thyroid biopsy.
[2021-11-14 15:51] VITALS: BP 121/71; PULSE 70
== END 2021-11-14 14:55 | disposition home or self-care (01) ==
LOC: RADPROMAIN 12:53
PROVIDERS: ATTEND Otolaryngology
DX: E04.1 Nontoxic single thyroid nodule (principal); D11.0 Benign neoplasm of parotid gland; Z88.2 Allergy status to sulfonamides; Z79.82 Long term (current) use of aspirin; Z79.899 Other long term (current) drug therapy; Z79.890 Hormone replacement therapy; Z79.51 Long term (current) use of inhaled steroids; Z87.891 Personal history of nicotine dependence; Z82.49 Family history of ischemic heart disease and other diseases of the circulatory system; Z82.3 Family history of stroke
CPT/HCPCS: 10005; 10006; 42400; 76942; 88173; 88305

== ENCOUNTER → 2022-04-21 | Outpatient (CLI) | payer MEDICARE, BC ==
[2022-04-21 16:12] LABS: Protein, Total 6.4 g/dL (6.2-8.2)
== END | disposition home or self-care (01) ==
LOC: LABWHC1 09:33
PROVIDERS: ATTEND Psychiatry & Neurology Neurology
DX: G90.09 Other idiopathic peripheral autonomic neuropathy (principal)
CPT/HCPCS: 36415; 82550; 82607; 82747; 83036; 84165; 84207; 85652; 86038; 86618

== ENCOUNTER → 2022-09-29 | Outpatient (CLI) | payer MEDICARE, BC ==
--- NOTE | 2022-09-29 10:09 | XR ---
EXAMINATION TYPE: XR lumbar spine 2 or 3V DATE OF EXAM: 09/29/2022 CLINICAL HISTORY: pain TECHNIQUE: Three views of the lumbar spine are submitted. COMPARISON: None. FINDINGS: There are 5 lumbar type vertebral bodies identified. The lumbar spine shows satisfactory alignment w ithout evidence of acute fracture or dislocation. Vertebral body heights are within normal limits. Mild scattered degenerative disc disease. The overlying soft tissue appears unremarkable. IMPRESSION: No acute fracture or dislocation is seen in the lumbar spine. ICD 10 NO FRACTURE, INITIAL EVALUATION
--- NOTE | 2022-09-29 15:10 | BD ---
EXAMINATION TYPE: Axial Bone Density DATE OF EXAM: 09/29/2022 CLINICAL HISTORY: 82 years old Female. ICD-10 CODE: Z12.31 M81.0 Height: 63 in Weight: 177 lbs RISK FACTORS HISTORY OF: Family History of Osteoporosis: yes mother Active: yes Postmenopausal woman: age 46 Take estrogen and/or progesterone medications: not now How lon years Frequent falls: yes due to rushing MEDICATIONS: Thyroid Medications: yes Which medication: Synthroid How Lon+ years Additional Medications: calcium, vit d, blood pressure meds, gabapentin, asthma meds,inhaler, cholest kaycee meds, allergy meds EXAM MEASUREMENTS: Bone mineral densitometry was performed using the [employer]. Bone mineral density as measured about the Lumbar spine is: ----- L1-L4(G/cm2): 1.110 T Score Values are as follows: ----- L1: -1.6 ----- L2: -0.7 ----- L3: -0.3 ----- L4: -0.7 ----- L1-L4: -0.6 Z Score Values are as follows: ----- L1: -0.2 ----- L2: 0.7 ----- L3: 1.6 ----- L4: 0.7 ----- L1-L4: 0.8 Bone mineral density has: Increased 5.2% since study of: 05/11/2020 Bone mineral density about the R hip (g/cm2): 0.744 Bone mineral density about the L hip (g/cm2): 0.817 T Score values are as follows: -----R Neck: -2.5 -----L Neck: -2.2 -----R Total: -2.1 -----L Total: -1.5 Z Score values are as follows: -----R Neck: -0.5 -----L Neck: -0.2 -----R Total: -0.3 -----L Total: 0.3 Bone mineral density has: Increased 3.7% since study of: 05/11/2020 FRAX%s: The graph provided illustrates a 18.1% chance for a major osteoporotic fx and a 6.4% chance f or the hips probability for fx in 10 years time. IMPRESSION: Osteopenia (T Score between -2.5 and -1). There is slightly increased risk of fracture and the patient may be considered for treatment. Re-Screen 2-5 years. NOTE: T-SCORE=SD OF THE YOUNG ADULT MEAN.
[2022-09-29 15:46] LABS: Basophils # (A) 0.04 X 10*3/uL (0.00-0.10); Basophils % (A) 0.5 %; Eosinophils # (A) 0.32 X 10*3/uL (0.04-0.35); Eosinophils % (A) 4.2 %; HCT 41.4 % (37.2-46.3); HGB 12.8 d/dL (12.0-15.0); Lymphocytes # (A) 2.96 X 10*3/uL (0.90-5.00); Lymphocytes % (A) 38.5 %; MCH 27.3 pg (27.0-32.0); MCHC 30.9 d/dL (32.0-37.0); MCV 88.3 FL (80.0-97.0); Mean Platelet Volume 11.1 FL (9.5-12.2); Monocytes # (A) 0.65 X 10*3/uL (0.20-1.00); Monocytes % (A) 8.5 %; NRBC Per 100 WBC 0 X 10*3/uL (0.00-0.01); Neutrophils # (A) 3.68 X 10*3/uL (1.80-7.70); Neutrophils % (A) 47.9 %; Platelet Count 242 X 10*3/uL (140-440); RBC 4.69 X 10*6/uL (4.10-5.20); RDW 15.7 % (11.5-14.5); WBC 7.68 X 10*3/uL (4.50-10.00)
[2022-09-29 16:04] LABS: ALT 21 U/L (8-44); AST 29 U/L (13-35); Albumin 4.3 d/dL (3.8-4.9); Albumin/Globulin Ratio 1.72 Ratio (1.60-3.17); Alkaline Phosphatase 84 U/L (41-126); BUN/Creat Ratio 24.29 Ratio (12.00-20.00); Calcium 10.1 mg/dL (8.7-10.3); Carbon Dioxide 26.1 mmol/L (21.6-31.8); Chloride 107 mmol/L (96-109); Chol/HDL Ratio 2.29 Ratio; Globulin 2.5 d/dL (1.6-3.3); Glucose 98 mg/dL (70-110); LDL Cholesterol,Calculated 72.3 mg/dL (0.0-131.0); Sodium 142 mmol/L (135-145); T4, Free (Free Thyroxine) 0.98 ng/dL (0.80-1.80); Total Bilirubin 0.4 mg/dL (0.3-1.2); Total Protein 6.8 d/dL (6.2-8.2); VLDL Calculation 18.32 mg/dL (5.00-40.00)
--- NOTE | 2022-10-02 06:09 | MM ---
Reason for Exam: Screening (asymptomatic). Last mammogram was performed 5 year(s) and 6 month(s) ago. Patient History: Menarche at age 13. First Full-Term at age 20. Postmenopausal. Estrogen for 20 years from age 44 until age 64. Progesterone for 20 years from age 44 until age 64. Risk Values: Margaux 5 year model risk: 1.4%. NCI Lifetime model risk: 1.9%. Prior Study Comparison: 03/26/2003 Bilateral Screening Mammogram, [facility]. 10/17/2006 Bilateral Screening Mammogram, [facility]. 03/21/2017 Bilateral Screening Mammogram, [facility]. Tissue Density: The breast tissue is heterogeneously dense. This may lower the sensitivity of mammography. Findings: Analyzed By CAD. There is no suspicious group of microcalcifications or new suspicious mass in either breast. Benign-appearing calcifications within both breasts. Overall Assessment: Benign, BI-RAD 2 Management: Screening Mammogram of both breasts in 1 year. A clinical breast exam by your physician is recommended on an annual basis and results should be correlated with mammographic findings. Note on Margaux scores and lifetime risk: 1. A Margaux score greater than 3% is considered moderate risk. If this is the case, consider specialist referral to assess eligibility for a risk reducing agent. If overall lifetime risk for the development of breast cancer is 20% or higher, the patient may qualify for future screening with alternating mammogram and breast MRI. Electronically signed and approved by: Artemio Laguna D.O.
== END | disposition home or self-care (01) ==
LOC: RADMAMWWP 07:52
PROVIDERS: ATTEND Internal Medicine Geriatric Medicine
DX: Z12.31 Encounter for screening mammogram for malignant neoplasm of breast (principal); Z00.00 Encounter for general adult medical examination without abnormal findings; M81.0 Age-related osteoporosis without current pathological fracture; E78.2 Mixed hyperlipidemia; E03.9 Hypothyroidism, unspecified; M48.07 Spinal stenosis, lumbosacral region; M54.50 Low back pain, unspecified; M85.89 Other specified disorders of bone density and structure, multiple sites; Z78.0 Asymptomatic menopausal state
CPT/HCPCS: 72100; 77063; 77067; 77080; 80053; 80061; 82306; 84439; 84443; 85025

== ENCOUNTER → 2023-02-13 | Outpatient (CLI) | payer MEDICARE, BC | END | disposition home or self-care (01) | LOC: LABWHC1 15:12 | PROVIDERS: ATTEND Orthopaedic Surgery | DX: Z01.812 Encounter for preprocedural laboratory examination (principal) | CPT/HCPCS: 87070 ==

== ENCOUNTER 2023-03-06 11:21 | Day surgery (SDC) | payer MEDICARE, BC ==
[2023-02-27 10:55] VITALS: BMI 29.2
[~2023-03-06 11:21] MED LIST changes: +ACETAMINOPHEN TAB 500 MG TAB PO PRN; +GABAPENTIN 300 MG CAP PO PRN; +HYDROmorphone 0.5 MG/0.5 ML SYRINGE IVP PRN; -LACTATED RINGERS 1,000 ML IV SCH; -LIDOCAINE 1% (10MG/ML) FOR IV START INTRADERMA PRN; +MELOXICAM 7.5 MG TAB PO PRN; +MIDAZOLAM 2 MG/2 ML VIAL IV PRN; +TRANEXAMIC 1,000 MG/100ML-NACL 1,000 MG in SALINE 1 100ML.BAG IVPB PRN
[2023-03-06] MEDS ORDERED: ONDANSETRON 4 MG/2 ML VIAL ONE (12:04)
[2023-03-06] MEDS: LACTATED RINGERS 1,000 ML IV SCH (12:05)
[2023-03-06] MEDS ORDERED: ONDANSETRON 4 MG/2 ML VIAL IVP ONE (12:37)
[2023-03-06] MEDS ORDERED: DEXAMETHASONE SOD PHOSPHATE 4 MG/ML 1 ML VIAL IVP ONE (12:38)
[2023-03-06] MEDS ORDERED: MIDAZOLAM 2 MG/2 ML VIAL IVP ONE ×2 (12:50→13:00)
[2023-03-06] MEDS ORDERED: fentaNYL (PF) 50 MCG/ML 2 ML AMP IVP ONE ×2 (12:50→13:00)
[2023-03-06] MEDS ORDERED: MAGNESIUM HYDROXIDE 2,400 MG/30 ML CUP PO PRN (12:58)
[2023-03-06] MEDS ORDERED: NA PHOS,M-B/NA PHOS,DI-BA 133 ML ENEMA RECTAL PRN (12:58)
[2023-03-06] MEDS ORDERED: bisacodyL 10 MG SUPP RECTAL PRN (12:58)
[2023-03-06] MEDS ORDERED: NALOXONE 0.4 MG/ML 1 ML VIAL IV PRN (12:58)
[2023-03-06] MEDS ORDERED: ONDANSETRON 4 MG/2 ML VIAL IVP PRN (12:58)
[2023-03-06] MEDS ORDERED: HYDROmorphone 0.5 MG/0.5 ML SYRINGE IVP PRN ×3 (12:58)
[2023-03-06] MEDS ORDERED: HYDROcodone/APAP 7.5-325MG 1 EACH TAB PO PRN ×2 (12:59)
[2023-03-06] MEDS ORDERED: DEXAMETHASONE SOD PHOSPHATE 4 MG/ML 1 ML VIAL ONE (13:10)
[2023-03-06] MEDS ORDERED: ROPIVACAINE 5 MG/ML 30 ML VIAL ONE (13:10)
[2023-03-06] MEDS ORDERED: fentaNYL (PF) 50 MCG/ML 2 ML AMP ONE (13:10)
[2023-03-06] MEDS ORDERED: PROPOFOL 10 MG/ML 20 ML VIAL IV ONE (13:10)
[2023-03-06] MEDS ORDERED: SODIUM CHLORIDE 0.9% (PF) 10 ML VIAL ONE (13:10)
[2023-03-06] MEDS: ceFAZolin 1,000 MG in SODIUM CHLORIDE 0.9% 1,000 ML IRRIGATION ONE ×2 (13:15→16:57)
[2023-03-06] MEDS ORDERED: ROPIVACAINE 1,100 MG, SODIUM CHLORIDE 0.9% 500 ML 330 ML, EMPTY PAIN BALL 1 EACH MISCELLANE PRN ×2 (14:23)
--- NOTE | 2023-03-06 14:24 | P.ANPRN ---
Procedure Note - Anesthesia - Nerve Block Performed Right Adductor Canal Infusion Time Out Performed: Yes Date of Procedure: 03/06/23 Procedure Start Time: 12:49 Procedure Stop Time: 12:58 Location of Patient: PreOp Indication: Acute Post-Operative Pain, Requested by Surgeon Sedation Type: Sedate with meaningful contact maintained Preparation: Sterile Prep, Sterile Dressing Position: Supine Catheter: Indwelling Needle Types: Pajunk Needle Gauge: 18 Ultrasound used to visualize needle placement: Yes Ultrasound used to observe medication spread: Yes Injectate: 0.5% Ropivacaine (see comment for volume) (15 ml + 10 ml NS) Blood Aspirated: No Pain Paresthesia on Injection Noted: No Resistance on Injection: Normal Image Stored and Saved: Yes Events: Uneventful and Well Tolerated
--- NOTE | 2023-03-06 14:25 | P.ANPRN ---
Procedure Note - Anesthesia - Nerve Block Performed Right iPack Single Time Out Performed: Yes Date of Procedure: 03/06/23 Procedure Start Time: 12:59 Procedure Stop Time: 13:08 Location of Patient: PreOp Indication: Acute Post-Operative Pain, Requested by Surgeon Sedation Type: Sedate with meaningful contact maintained Preparation: Sterile Prep Position: Left Lateral Needle Types: Pajunk Needle Gauge: 21 Ultrasound used to visualize needle placement: Yes Ultrasound used to observe medication spread: Yes Injectate: 0.5% Ropivacaine (see comment for volume) (15 ml + 10 ml NS + 4 mg Dexamethasone) Blood Aspirated: No Pain Paresthesia on Injection Noted: No Resistance on Injection: Normal Image Stored and Saved: Yes Events: Uneventful and Well Tolerated
--- NOTE | 2023-03-06 14:28 | P.OP ---
Date of Procedure: 03/06/23 Preoperative Diagnosis: Severe osteoarthritis right knee Postoperative Diagnosis: Severe osteoarthritis right knee Procedure(s) Performed: Right total knee arthroplasty Implants: [employer]hew Journey II CR Oxinium cruciate retaining femoral component size 4, right [employer] Journey nonporous tibial baseplate size 3, right [employer] Journey II, XLPE Deep Dished articular insert, size 9 mm, Size 3- 4, right [employer] Journey Abi II resurfacing patellar component, oval, 29 mm All components were cemented using Palacos R bone cement The articulation is Oxinium on polyethylene Anesthesia: spinal Surgeon: Pawan Prasad Steam Box Operator #1: Anuja Shannon Estimated Blood Loss (ml): 50 Pathology: none sent Condition: stable Disposition: PACU Indications for Procedure: The patient's knee is end-stage, and conservative management has failed. The operation of knee replacement has been discussed at length in the office, as well as potential risks and complications. These are inclusive of, but not limited to: Infection, bleeding, scarring, discomfort, stiffness, blood vessel and nerve damage, need for further surgery, failure to relieve symptoms, persistence, recurrence, or worsening of problems, loosening, dislocation, wear, blood clot, pulmonary embolism, , gait dysfunction, stiffness, and other risks as discussed in the office. Patient elects to proceed and the consent form has been signed. Operative Findings: The operative findings are consistent with severe synovitis of the right knee Description of Procedure: The patient was seen in the preoperative area, the consent was reviewed and the operative site was marked with a skin marker. The patient verified the procedure and the operative site. An adductor canal pain catheter and an iPACK block were placed by anesthesia in the preoperative area. The patient was then brought to the operating room and positioned on the operating room table in the supine position. Preoperative antibiotics and a gram of tranexamic acid were given intravenously. A spinal anesthetic was administered by the anesthesia department. Care was taken to make sure that all pressure points were adequately padded. A tourniquet was placed on the upper thigh and the lower extremity was prepped with ChloraPrep and draped in usual sterile fashion. A universal time-out was then performed which confirmed the patient's name, surgical site, ALLERGIES, and consent. The lower extremity was then exsanguinated and tourniquet was inflated to 250 mmHg. A standard anterior midline approach to the knee was performed. The skin and subcutaneous tissue were sharply dissected down to the patellar tendon. A medial parapatellar arthrotomy was then performed. The knee was then extended, the patellar was everted, and the knee was flexed. The infra-patellar fat pad was removed in order to enhance exposure. The anterior horns of both menisci were excised, and a release was performed to the posterior medial aspect of the knee. On gross visual inspection, there was complete loss of articular cartilage in the medial and patellofemoral joint spaces. There was also significant cartilage damage in the lateral compartment. There were multiple periarticular osteophytes globally about the knee which were then removed with a Ronguer. The femoral canal was then opened with the 9.5 mm intramedullary drill. The 8 mm intramedullary kermit was then inserted into the femoral canal with the distal femoral cutting guide set for 5 of valgus. The distal femoral cutting block was then pinned in place. The intramedullary kermit was then removed, and the distal femur was then cut. The cutting block was then removed and the cut was checked for symmetry. The resected bone was then measured to confirm the appropriate distal femoral resection. Next, the sizing guide was then placed and set for 3 external rotation based off of the epicondylar axis and [place]'s line. Pins were then placed and the drill holes, and the femur was sized with the sizing stylus. The pins were then removed, and the sizing guide was then removed. The spikes of the appropriate size femoral block was then placed into the predrilled holes, and malleted into place. Two 45 mm pins were then placed into the fixation holes on the cutting block. An johnny wing was then used to ensure there would be no notching with the anterior cut. The anterior condyles were cut without notching. The anterior chord cut was then performed, followed by the posterior cut, posterior chamfer cut, and the anterior chamfer cut. The collateral ligaments were protected during the entire process. The cutting block was then removed. Any remaining bone and osteophytes were removed from the femur with a Ronguer. Attention was then directed to the tibia. The remaining ACL was removed with a Ronguer, and the tibia was then gently subluxed forward with a large bent knee retractor. Any remaining menisci were excised. The posterior lateral corner was cauterized in order to coagulate the lateral geniculate artery. The extra medullary tibial cutting guide was then placed, set for the appropriate rotation, slope, and depth of resection. The proximal tibia cutting guide was then pinned in place. Proximal tibia was then cut and sized. A curved osteotome was then used to remove any posterior osteophytes from the distal femur. The femoral trial was placed. A narrow saw blade was then used to remove the anterior intracondylar femoral bone. The CR notch trial was then placed. The tibial trial was placed with the appropriate-sized insert. The knee was able to fully extend and flex to 130 and was stable throughout all range of motion. The knee was then extended and the patella was everted. Patella was then measured, and then using an osteotomy guide, the patella was cut at the appropriate level. The patellar component was sized. The patellar drill guide was placed and the patella was drilled. The patella trial was then placed. The knee was then taken through range of motion with the patella trial and the patella tracked normally using the no thumbs technique. The patella trial was then removed. The knee was then flexed and lug holes were drilled through the femoral trial and the femoral trial was then removed. The tibial was then re- exposed, and the tibial broach guide was then pinned in place after it was set for the appropriate rotation to allow for the most coverage without overhang. The tibia was then reamed and broached. The femoral canal was plugged with autologous bone. The cut surfaces of bone were then irrigated with pulsatile lavage. The knee was also irrigated with Irrisept solution. The components were then opened, the cement was mixed. Cement was placed on the backside of the femoral, tibial, and patellar components. Cement was then applied to the tibial surface and pressurized into the surface using finger pressurization technique. The tibial component was then applied and excess cement was removed after it was impacted securely noted to be flush with the cut surface. In similar fashion, the cement was applied to the cut femoral surface, press urized and using finger pressurization the component was impacted in place. Excess cement was removed. The polyethylene spacer was then implanted and locked into position. Patellar component was then applied in a similar technique and the patellar clamp was used to hold patella in place while the cement hardened. The knee was held in full extension while the cement hardened. Once the cement had fully hardened, the knee was reinspected. Any other cement extrusion was removed the final range of motion testing showed range of motion from 0-130 with excellent stability, both medial and laterally and appropriate alignment of the leg. Patella tracked normally. After the cemented hardened, the tourniquet was released and hemostasis was obtained. A second gram of transexamic acid was given intravenously. The knee was again irrigated. The knee was again taken through range of motion and found to be stable throughout all range of motion of 0-130, and the patella tracked normally. The fascia was then closed with 0 Vicryl followed by #2 strata fix suture. The subcutaneous tissue was closed with 3-0 Vicryl and 3-0 strata fix. Exofin glue was used for the skin and placed with the knee in flexion. After the glue had dried, and Optafoam silver impregnated dressing was applied. A lightly compressive dressing was applied using web roll and Dragan wrap. Patient was then transferred to the stretcher and taken to recovery room in stable condition. Sponge and needle counts were correct. The mobile unit assistant HERNANDEZ Lombardi was required due the complexity surgery and the need for a skilled assistant sales manager. She assisted in positioning, draping, retraction, and closure of the wound.
[2023-03-06] MEDS: SODIUM CHLORIDE 0.9% 1,000 ML IV SCH (16:02)
--- NOTE | 2023-03-06 18:07 | XR ---
EXAMINATION TYPE: XR knee limited RT DATE OF EXAM: 03/06/2023 3:35 PM CLINICAL INDICATION:Female, 83 years old with history of Evaluation for Postop abnormality and alignm ent; [facility] COMPARISON: None. TECHNIQUE: XR knee limited RT; examined in Frontal, lateral and oblique projections. FINDINGS: Status post total knee arthroplasty changes with hardware in appropriate alignment and in tact. No evidence of fracture. Subcutaneous lucencies and lucencies within the joint consistent with surgical changes. IMPRESSION: Status post total knee arthroplasty changes with hardware intact and appropriate alignment. No fractu res identified.
[2023-03-06] MEDS ORDERED: SENNOSIDES-DOCUSATE SODIUM 1 EACH TAB PO SCH (21:00)
[2023-03-06] MEDS ORDERED: ATORVASTATIN 40 MG TAB PO SCH (21:00)
[2023-03-06] MEDS ORDERED: MONTELUKAST 10 MG TAB PO SCH (21:00)
[2023-03-06] MEDS: ASPIRIN 325 MG TAB PO SCH (21:15)
[2023-03-06] MEDS: GABAPENTIN 300 MG CAP PO SCH (21:16)
[2023-03-06] MEDS: FAMOTIDINE 20 MG TAB PO SCH (21:16)
[2023-03-07] MEDS: SODIUM CHLORIDE 0.9% 1,000 ML IV SCH (05:22)
--- NOTE | 2023-03-07 07:10 | P.PN ---
Progress Note - Text Progress Note Date: 03/07/23 Postoperative day # 1 status post total knee arthroplasty, and adductor canal catheter placed for postoperative analgesia, currently at ropivacaine 0.2% 8 mL per hour and continuous infusion, visual analogue scale is 3/10, patient using oral pain medication for breakthrough pain. Assessment and plan= Acute postoperative pain, adductor canal catheter for pain control, pain is well controlled we'll continue the same management.
--- NOTE | 2023-03-07 07:41 | P.DS ---
Providers Expected date of discharge: 03/07/23 Attending physician: Pawan Prasad Consults: 03/06/23 12:58 Consult Physician Routine Consulting Provider: Pamela Sanford Consult Reason/Comments: medical management Do you want consulting provider notified?: Yes Primary care physician: Sunny Glasgow - Discharge Diagnosis(es) (1) Primary localized osteoarthritis of right knee Current Visit: Yes Status: Acute (2) Status post total right knee replacement Current Visit: Yes Status: Acute Hospital Course: This is an 83-year-old female who was last seen with complaint of continued right knee pain. The patient has a known history of degenerative arthritis of the right knee and presents to discuss surgical options. After discussion and consideration the patient elects to proceed with total right knee arthroplasty. The patient is seen preoperatively by her primary care physician and cleared for surgery. The patient is admitted to [facility] for total right knee arthroplasty. The procedures performed without complication or sequelae. Patient is doing well postoperatively. Vital signs are stable at discharge. Labs are stable at discharge. the patient is ambulating well with walker with minimal assistance. The patient is discharged to home on postop day #1 pending medical clearance. Please see orders and refer to the med rec for accurate list of medications. Patient Condition at Discharge: Good Plan - Discharge Summary Discharge Rx Participant: Yes New Discharge Prescriptions: New HYDROcodone/APAP 7.5-325MG [[place] 7.5-325] 1 - 2 tab PO Q6H PRN #32 tab PRN Reason: Pain Sennosides [Senokot] 2 tab PO DAILY PRN #60 tablet PRN Reason: Constipation Aspirin 325 mg PO BID #60 tab No Action Cholecalciferol [Vitamin D3] 2,000 unit PO DAILY Aspirin 81 mg PO DAILY Rosuvastatin Calcium [Crestor] 20 mg PO HS Montelukast [Singulair] 10 mg PO HS Levothyroxine Sodium [Synthroid] 50 mcg PO DAILY Gabapentin [Neurontin] 300 mg PO BID Biotin 2,500 mcg PO DAILY Albuterol Sulfate [Proair Hfa] 2 puff INHALATION RT-BID PRN PRN Reason: asthma sx Escitalopram Oxalate [Lexapro] 10 mg PO DAILY Alendronate Sodium [Fosamax] 70 mg PO HOLLAND Famotidine [Pepcid] 20 mg PO BID LORazepam [Ativan] 0.5 mg PO BID PRN PRN Reason: Anxiety Pantoprazole [Protonix] 40 mg PO DAILY Magnesium Oxide [Magnesium] 500 mg PO DAILY Fluticasone Propion/Salmeterol [Advair Hfa 115-21 Mcg Inhaler] 2 puff INHALATION BID amLODIPine [Norvasc] 2.5 mg PO DAILY Multivit-Min/Iron/Folic/Lutein [Centrum Silver Women Tablet] 1 each PO DAILY Calcium. 1,000 mg PO DAILY Azelastine HCl [Astelin Nasal [place]] 137 mcg NASAL BID Discharge Medication List Aspirin 81 mg PO DAILY 01/18/16 [History] Biotin 2,500 mcg PO DAILY 01/18/16 [History] Cholecalciferol [Vitamin D3] 2,000 unit PO DAILY 01/18/16 [History] Gabapentin [Neurontin] 300 mg PO BID 01/18/16 [History] Levothyroxine Sodium [Synthroid] 50 mcg PO DAILY 01/18/16 [History] Montelukast [Singulair] 10 mg PO HS 01/18/16 [History] Rosuvastatin Calcium [Crestor] 20 mg PO HS 01/18/16 [History] Albuterol Sulfate [Proair Hfa] 2 puff INHALATION RT-BID PRN 06/28/17 [History] Alendronate Sodium [Fosamax] 70 mg PO HOLLAND 02/08/21 [History] Escitalopram Oxalate [Lexapro] 10 mg PO DAILY 02/08/21 [History] Famotidine [Pepcid] 20 mg PO BID 09/16/21 [History] Fluticasone Propion/Salmeterol [Advair Hfa 115-21 Mcg Inhaler] 2 puff INHALATION BID 09/16/21 [History] LORazepam [Ativan] 0.5 mg PO BID PRN 09/16/21 [History] Pantoprazole [Protonix] 40 mg PO DAILY 09/16/21 [History] Azelastine HCl [Astelin Nasal [place]] 137 mcg NASAL BID 02/27/23 [History] Calcium. 1,000 mg PO DAILY 02/27/23 [History] Magnesium Oxide [Magnesium] 500 mg PO DAILY 02/27/23 [History] Multivit-Min/Iron/Folic/Lutein [Centrum Silver Women Tablet] 1 each PO DAILY 02/27/23 [History] amLODIPine [Norvasc] 2.5 mg PO DAILY 02/27/23 [History] Aspirin 325 mg PO BID #60 tab 03/06/23 [Rx] HYDROcodone/APAP 7.5-325MG [[place] 7.5-325] 1 - 2 tab PO Q6H PRN #32 tab 03/06/23 [Rx] Sennosides [Senokot] 2 tab PO DAILY PRN #60 tablet 03/06/23 [Rx] Follow up Appointment(s)/Referral(s): Pawan Prasad DO [Doctor of Osteopathic Medicine] - 2 Weeks Activity/Diet/Wound Care/Special Instructions: Weightbearing as tolerated with a walker. CPM 5-6h daily as tolerated. Leave dressing intact. Dressing may be removed by home care nurse or by patient in 7 days. Then change dressing twice daily until follow up. May shower with initial dressing intact and after removal. If dressing become saturated, please remove. Recommend use of compression stockings daily until follow up to help prevent swelling and blood clots. May remove at night before sleeping. Please take aspirin 325mg twice daily for 30 days to prevent blood clots. Please follow up with [facility] and call with any questions or concerns, . Discharge Disposition: HOME WITH HOME HEALTH SERVICES
[2023-03-07] MEDS: LACTATED RINGERS 1,000 ML IV SCH (08:01)
[2023-03-07 08:43] LABS: Basophils # (A) 0.02 X 10*3/uL (0.00-0.10); Basophils % (A) 0.1 %; Eosinophils # (A) 0 X 10*3/uL (0.04-0.35); Eosinophils % (A) 0 %; HCT 33.2 % (37.2-46.3); HGB 10.9 g/dL (12.0-15.0); Lymphocytes # (A) 2.49 X 10*3/uL (0.90-5.00); Lymphocytes % (A) 16.3 %; MCH 28.5 pg (27.0-32.0); MCHC 32.8 g/dL (32.0-37.0); MCV 86.9 FL (80.0-97.0); Mean Platelet Volume 10.5 FL (9.5-12.2); Monocytes # (A) 0.81 X 10*3/uL (0.20-1.00); Monocytes % (A) 5.3 %; NRBC Per 100 WBC 0 X 10*3/uL (0.00-0.01); Neutrophils # (A) 11.92 X 10*3/uL (1.80-7.70); Neutrophils % (A) 77.8 %; Platelet Count 220 X 10*3/uL (140-440); RBC 3.82 X 10*6/uL (4.10-5.20); RDW 15.2 % (11.5-14.5); WBC 15.32 X 10*3/uL (4.50-10.00)
[2023-03-07] MEDS ORDERED: PANTOPRAZOLE 40 MG TABLET PO SCH (09:00)
[2023-03-07] MEDS ORDERED: ESCITALOPRAM 10 MG TAB PO SCH (09:00)
[2023-03-07] MEDS ORDERED: LEVOTHYROXINE 50 MCG TAB PO SCH (09:00)
[2023-03-07] MEDS ORDERED: MAGNESIUM OXIDE 400 MG TAB PO SCH (09:00)
[2023-03-07] MEDS ORDERED: amLODIPine 2.5 MG TAB PO SCH (09:00)
[2023-03-07] MEDS: ASPIRIN 325 MG TAB PO SCH (09:18)
[2023-03-07] MEDS: GABAPENTIN 300 MG CAP PO SCH (09:18)
[2023-03-07] MEDS: FAMOTIDINE 20 MG TAB PO SCH (09:18)
[2023-03-07 10:05] VITALS: BP 130/68; PULSE 62; RESP 18; TEMP 98.4
[2023-03-07 10:57] LABS: Appearance,Urine Clear (Clear); Bilirubin,Urine Negative (Negative); Blood,Urine Negative (Negative); Color,Urine Yellow; Glucose,Urine (UA) Negative (Negative); Ketones,Urine Negative (Negative); Leukocyte Esterase,Urine Negative (Negative); Nitrite,Urine Negative (Negative); Protein,Urine Trace (Negative); Specific Gravity,Urine 1.035 (1.001-1.035); Urobilinogen,Urine <2.0 mg/dL (<2.0)
--- NOTE | 2023-03-07 19:47 | CONS ---
CONSULTATION REASON FOR CONSULTATION: Advice regarding high WBC, asthma, and other multiple medical issues, requested by [facility]. HISTORY OF PRESENT ILLNESS: This is an 83-year-old woman with a past medical history of asthma, COPD, and multiple medical issues, underwent right total knee arthroplasty. The patient's white count is slightly elevated, possibly reactive. There is no history of any fever, rigor, or chills. PAST MEDICAL HISTORY: Reviewed includes asthma and COPD. Rest of the history and rest of the chart are also reviewed. HOME MEDICATIONS: Reviewed include Norvasc. Doses and rest of the medications are reviewed. ALLERGIES: Sulfa. FAMILY HISTORY: History of CAD. SOCIAL HISTORY: Previous history of smoking. REVIEW OF SYSTEMS: Fourteen-point review is negative except as mentioned earlier. PHYSICAL EXAMINATION: VITAL SIGNS: Pulse 62, blood pressure 136/68, respirations 18. HEENT: Conjunctivae are normal. NECK: No jugular venous distention. CARDIOVASCULAR: S1 and S2 muffled. RESPIRATORY: Breath sounds diminished at the bases. No rhonchi. No crackles. ABDOMEN: Soft and nontender. LEGS: Status post right knee arthroplasty. NERVOUS SYSTEM: No focal deficits. SKIN: No ulcers or rashes. JOINTS: No active deforming arthropathy. LABORATORY DATA: WBC 15.8, hemoglobin is 10.9. ASSESSMENT: 1. Status post right total knee arthroplasty. 2. Elevated WBC, possibly reactive. 3. Asthma/chronic obstructive pulmonary disease. 4. Hypertension. 5. Hyperlipidemia. RECOMMENDATIONS: Recommend to continue current medications. Continue symptomatic treatment. Resume the home medications and DVT prophylaxis. Incentive spirometry. The UA is normal. There is no evidence for UTI. Recommend to closely follow with primary physician. Rest of the recommendations per Orthopedic Surgery. Follow up with Dr. Glasgow after discharge. MMODL / IJN: [id number] /
== END 2023-03-07 12:31 | disposition home health service (06) ==
LOC: OR 11:21 → 4SSUR 14:55 → OR 03-07 12:31
PROVIDERS: ATTEND Orthopaedic Surgery
DX: M17.11 Unilateral primary osteoarthritis, right knee (principal); J44.9 Chronic obstructive pulmonary disease, unspecified; I10 Essential (primary) hypertension; E78.5 Hyperlipidemia, unspecified; Z88.2 Allergy status to sulfonamides; Z87.891 Personal history of nicotine dependence; Z79.899 Other long term (current) drug therapy
CPT/HCPCS: 97161; 64999; 64448; 85025; 81003; 73560; 27447; C1713; C1776; C1751; J2250; J1100; J0690 ×3; J2405; J3010; J2795

== ENCOUNTER → 2023-05-10 | Outpatient (CLI) | payer MEDICARE, BC ==
--- NOTE | 2023-05-10 14:49 | P.PN ---
Subjective DATE: 05/10/2023 FOLLOW UP VISIT. Patient with obstructive sleep apnea hypopnea syndrome return to sleep center for follow-up visit. Information from previous visit have been reviewed. Patient is using BPAP equipment every night for the whole night, getting PAP supplies in time. The patient does not have significant problems with the mask, BPAP unit and humidification. Ashley sleepiness scale is increased to 18. I checked information from BPAP unit. BPAP unit pressure maximal inspiratory pressure 15, minimal expiratory pressure 5, pressure-support 4, average pressure 12/8 cm H2O. Usage is 77 % for more then 4 hours, average 6.8 hours per night. Leak is slightly increased to 28.6.. Apnea Hypopnea Index is 3.8, which is normal. Respirations normalized comparing to the previous visit, when apnea-hypopnea index was 10.3 after I changed parameters of BiPAP unit to AutoBiPAP. MEDICATIONS:1. Pantoprazole 40 mg once a day 2. Lexapro 10 mg 3. Singulair 10 mg once a day 4. Crestor 20 mg once a day 5. Gabapentin 300 mg twice a day 6. Amlodipine 2.5 mg once a day 7. Famotidine 20 mg once a day During physical exam: GENERAL: A pleasant patient without any distress. VITAL SIGNS: BP 146/74, HR 70, RR 18, weight 170.0, temperature 98.4, oxygen saturation at room air 96 % . HEENT: PERRLA, EOMI.low position of soft palate, Mallapati 3 . NECK: Supple. No JVD. LUNGS: Clear to percussion and to auscultation. Good air exchange. No wheezing or rhonchi. HEART: S1, S2 regular. ABDOMEN: Soft and nontender.[] EXTREMITIES: No clubbing or cyanosis. TABLE ASSEMBLER: Awake, alert, and oriented x3. No focal deficit. Impressions: 1. Obstructive sleep apnea-hypopnea syndrome. Patient demonstrated great compliance with treatment, benefiting from treatment. 2. Depression. 3. Asthma. 4. Obesity. 5. Acid reflux. 6. ALLERGIES. 7. Hyperlipidemia. Plan: 1. Continue using PAP equipment every night for the whole night. 2. To change air filter at least 1-2 times per month. 3. PAP unit should stay lower then position of the head. 4. Advised patient to remove all remaining water from humidifier canister daily and make it dry after each usage. Refill canister with fresh distilled water before each usage. 5. Sleep hygiene with regular time in bed for at least 8 hours. 6. Precautions related to driving. No driving if feel any sleepiness. 7. I will maintain prescription for PAP supplies including mask, tube, filters. 8. Follow up visit in 6 months or earlier if patient has any problems. 9. Watching weight. Thank you very much for allowing me to participate in the management of your patient. Juan Jose Mckeon MD, PhD, FAASM. Diplomat of [place] [employer], Sleep Medicine Board by [employer] Proofer of [facility] [place]
== END ==
LOC: 3 N SLEEP 13:10
PROVIDERS: ATTEND Internal Medicine
DX: G47.33 Obstructive sleep apnea (adult) (pediatric) (principal); F32.A Depression, unspecified; J45.909 Unspecified asthma, uncomplicated; E66.9 Obesity, unspecified; K21.9 Gastro-esophageal reflux disease without esophagitis; E78.5 Hyperlipidemia, unspecified; Z99.89 Dependence on other enabling machines and devices; Z79.899 Other long term (current) drug therapy; Z88.2 Allergy status to sulfonamides; Z79.82 Long term (current) use of aspirin; Z87.891 Personal history of nicotine dependence
CPT/HCPCS: 99212

== ENCOUNTER → 2023-11-29 | Outpatient (CLI) | payer MEDICARE, BC | LOC: 3 N SLEEP 13:58 | PROVIDERS: ATTEND Internal Medicine | DX: G47.33 Obstructive sleep apnea (adult) (pediatric) (principal); F32.A Depression, unspecified | CPT/HCPCS: 99212 ==